=== PATIENT | female | born 1950 | race Caucasian/White ===

== ENCOUNTER 2016-12-28 13:00 | Inpatient (IN) | payer MEDICAID ==
[2016-12-28 14:22] LABS: HEMATOCRIT 38.6 % (36.0-47.0); HEMOGLOBIN 12.8 g/dL (12.0-15.5); HGB HCT DIFFERENCE -0.2; MEAN CORPUSCULAR HEMOGLOBIN 30.9 pg (27.0-33.4); MEAN CORPUSCULAR HGB CONC 33.3 g/dL (32.0-36.0); MEAN CORPUSCULAR VOLUME 93 fl (80-97); RED BLOOD COUNT 4.16 10^6/uL (3.72-5.28); RED CELL DISTRIBUTION WIDTH 13.5 % (11.5-14.0)
[2016-12-28 14:37] LABS: ALANINE AMINOTRANSFERASE 23 U/L (9-52); ALBUMIN 3.9 g/dL (3.5-5.0); ALKALINE PHOSPHATASE 58 U/L (38-126); ANION GAP 12 (5-19); ASPARTATE AMINO TRANSFERASE 17 U/L (14-36); BILIRUBIN,DIRECT 0.1 mg/dL (0.0-0.4); BILIRUBIN,TOTAL 1.3 mg/dL (0.2-1.3); BLOOD UREA NITROGEN 24 mg/dL (7-20); CALCIUM 9.6 mg/dL (8.4-10.2); CARBON DIOXIDE 30 mmol/L (22-30); CHLORIDE 100 mmol/L (98-107); CREATININE RESULT 0.65 mg/dL (0.52-1.25); GLUCOSE 125 mg/dL (75-110); POTASSIUM 4.5 mmol/L (3.6-5.0); SODIUM 141.7 mmol/L (137-145)
[2016-12-28] MEDS ORDERED: ENOXAPARIN SODIUM INJ 40 MG/0.4 ML DISP.SYRIN SUBCUT ONE (17:00)
[2016-12-28] MEDS: LEVOFLOXACIN 750 MG/D5W RTU 750 MG/150 ML RTUPB IV SCH (17:43)
[2016-12-28] MEDS ORDERED: INFLUENZA ADLT QUAD (36MOS+) 2016-17 VAC 0.5 ML SYR IM PRN (18:16)
[2016-12-28] MEDS ORDERED: ZOLPIDEM TARTRATE 5 MG PO PRN (19:22)
[2016-12-28] MEDS ORDERED: (PENDING PHARMACY ID) (Oxycodone Hcl/Acetaminophen [Oxycodone-Acetaminophen 10-325] 1 EACH PO PRN (19:22)
[2016-12-28] MEDS ORDERED: CHLORPHENIRAMINE MALEATE 4 MG TABLET PO PRN (19:22)
[2016-12-28] MEDS ORDERED: MECLIZINE HCL 25 MG TABLET PO PRN (19:22)
[2016-12-28] MEDS ORDERED: FUROSEMIDE 80 MG TABLET PO PRN (19:22)
--- NOTE | 2016-12-28 20:33 | PDOC H&P ---
History of Present Illness Admission Date/PCP: 12/28/16 13:37 DIEGO LUZ History of Present Illness: FATOUMATA KRUEGER is a 66 year old female, she came to the office this morning with family because she was not getting any better despite 5 days of p.o. antibiotic with azithromycin. She called the office last week to indicate to the office that she was not feeling well she was coughing and the cough was productive of sputum and that she needed antibiotic, patient is known to have pneumonia in the past it was assumed that she probably have community-acquired pneumonia and she was prescribed p.o. azithromycin but despite couple of many days of p.o. antibiotic she continued to feel unwell with vomiting not able to keep any food down and she came to the office today for evaluation. She was seen and evaluated in the office she was obviously acutely ill looking on auscultation of the chest there was scattered rhonchi because of concern for pneumonia and the fact that she has failed outpatient therapy despite treatment with p.o. antibiotic for the last 5 days she was admitted directly from the office to the hospital for evaluation and management of her symptoms. CT scan of the chest was done and it showed patchy airspace disease in the posterior right upper lobe, superior right and left lower lobe this suggests multilobar pneumonia. There is also associated leukocytosis with white cell count was increased. The initial intent was to bring her in for observation but after evaluation suggests that she has multilobar pneumonia this was transitioned to full admission, inpatient care Past Medical History Cardiac Medical History: Reports: Coronary Artery Disease, Hyperlipidema, Hypertension Pulmonary Medical History: Reports: Bronchitis, Pneumonia Endocrine Medical History: Reports: Diabetes Mellitus Type 2 - Diet controlled GI Medical History: Reports: Gastroesophageal Reflux Disease Musculoskeltal Medical History: Reports: Arthritis Psychiatric Medical History: Reports: Depression Past Surgical History Past Surgical History: Reports: Cardiac Catheterization - stent X2, Cholecystectomy, Hysterectomy, Orthopedic Surgery - carpal tunnel bilateral hands, spur on heel Social History Smoking Status: Former Smoker Frequency of Alcohol Use: None Hx Recreational Drug Use: No Drugs: None Hx Prescription Drug Abuse: No - Advance Directive Resuscitation Status: Full Code Family History Family History: Reviewed & Not Pertinent Parental Family History Reviewed: Yes Children Family History Reviewed: Yes Sibling(s) Family History Reviewed.: Yes Medication/Allergy Home Medications: Aspirin [Ecotrin 81 mg EC Tablet] 81 mg PO DAILY 08/05/11 Carvedilol [Coreg 25 mg Tablet] 25 mg PO BID 08/05/11 Lorazepam [Ativan 1 mg Tablet] 1 mg PO BID PRN 08/05/11 Omeprazole [Prilosec 40 mg Capsule] 40 mg PO QHS 08/05/11 Zolpidem Tartrate [Ambien 10 mg Tablet] 5 mg PO HSP PRN 08/05/11 Fexofenadine HCl [Sabrina] 180 mg PO QHS 05/08/14 Furosemide [Lasix 80 mg Tablet] 80 mg PO DAILY PRN 05/08/14 Oxycodone HCl/Acetaminophen [Oxycodone-Acetaminophen 10-325] 1 each PO Q6 PRN Chlorpheniramine Maleate [Aller-Chlor 4 mg Tablet] 1 tab PO Q6HP PRN 12/28/16 Lisinopril [Prinivil 2.5 mg Tablet] 2.5 mg PO DAILY 12/28/16 Meclizine HCl 25 mg PO DAILY PRN 12/28/16 Pramipexole Di-HCl [Pramipexole Dihydrochloride] 0.125 mg PO QHS 12/28/16 Pravastatin Sodium 40 mg PO DAILY 12/28/16 Allergies/Adverse Reactions: erythromycin base [Erythromycin Base] Allergy (Severe, Verified 11/02/13 12:32) stops breathing meperidine HCl [From Demerol] Allergy (Severe, Verified 11/02/13 12:32) VOMITING Review of Systems Constitutional: PRESENT: chills, weakness Respiratory: PRESENT: cough, sputum Gastrointestinal: PRESENT: nausea, vomiting Genitourinary: ABSENT: dysuria, hematuria Musculoskeletal: ABSENT: joint swelling Integumentary: ABSENT: rash, wounds Neurological: ABSENT: abnormal gait, abnormal speech, confusion, dizziness, focal weakness, syncope Psychiatric: ABSENT: anxiety, depression, homidical ideation, suicidal ideation Endocrine: ABSENT: cold intolerance, heat intolerance, menstrual abnormalities, polydipsia, polyuria Hematologic/Lymphatic: ABSENT: easy bleeding, easy bruising, lymphadenopathy Physical Exam Vital Signs: Temp Pulse Resp BP Pulse Ox 98.3 F 82 18 120/76 92 12/28/16 15:28 12/28/16 15:28 12/28/16 15:28 12/28/16 15:28 12/28/16 15:28 Intake & Output 12/27/16 12/28/16 12/29/16 06:59 06:59 06:59 Intake Total 240 Balance 240 Weight 102.2 kg General appearance: PRESENT: mild distress Head exam: PRESENT: atraumatic, normocephalic Eye exam: PRESENT: conjunctiva pink, EOMI, PERRLA Ear exam: PRESENT: normal external ear exam Mouth exam: PRESENT: moist, tongue midline Neck exam: PRESENT: full ROM Respiratory exam: PRESENT: crackles, rhonchi Cardiovascular exam: PRESENT: RRR, +S1, +S2 Vascular exam: PRESENT: normal capillary refill GI/Abdominal exam: PRESENT: normal bowel sounds, soft Rectal exam: PRESENT: deferred Neurological exam: PRESENT: alert, awake, oriented to person, oriented to place , oriented to time, oriented to situation, CN II-XII grossly intact Psychiatric exam: PRESENT: appropriate affect, normal mood Skin exam: PRESENT: dry, intact, warm Results Laboratory Results: 12/28/16 14:08 12/28/16 14:08 12/28/16 12/28/16 14:08 14:08 WBC 14.0 H RBC 4.16 Hgb 12.8 Hct 38.6 MCV 93 MCH 30.9 MCHC 33.3 RDW 13.5 Plt Count 222 Sodium 141.7 Potassium 4.5 Chloride 100 Carbon Dioxide 30 Anion Gap 12 BUN 24 H Creatinine 0.65 Est GFR ( Amer) > 60 Est GFR (Non-Af Amer) > 60 Glucose 125 H Calcium 9.6 Total Bilirubin 1.3 AST 17 ALT 23 Alkaline Phosphatase 58 Total Protein 7.0 Albumin 3.9 Impressions: Chest CT 12/28/16 00:00 IMPRESSION: STABLE CHRONIC CHANGES. PATCHY AIRSPACE DISEASE IN THE RIGHT UPPER LOBE AND RIGHT AND LEFT LOWER LOBE SUSPICIOUS FOR PNEUMONIA. Assessment & Plan - Diagnosis (1) Pneumonia Qualifiers: Pneumonia type: due to unspecified organism Laterality: bilateral Lung location: lower lobe of lung Qualified Code(s): J18.9 - Pneumonia, unspecified organism Is this a current diagnosis for this admission?: YesPlan: Patient was admitted for management of community acquired pneumonia, CT scan showed multilobar pneumonia involving the right upper lobe right and left lower lobe, she failed outpatient treatment with azithromycin, she be treated with IV antibiotic, Levaquin and cefepime to cover potential pathogens from the community. (2) Hypertension Qualifiers: Hypertension type: essential hypertension Qualified Code(s): I10 - Essential (primary) hypertension Is this a current diagnosis for this admission?: YesPlan: She will continue medication from home
[2016-12-28] MEDS: CARVEDILOL 12.5 MG TABLET PO SCH (21:49)
[2016-12-28] MEDS: CEFEPIME 1 GM/D5W RTU 1 GM/50 ML RTUPB IV SCH (21:50)
[2016-12-28] MEDS: ZOLPIDEM TARTRATE 5 MG TABLET PO PRN (21:51)
[2016-12-28] MEDS: OXYCODONE-ACETAMINOPHEN 5-325 MG TABLET PO PRN (21:51)
[2016-12-28] MEDS: LORAZEPAM 1 MG TABLET PO PRN (21:52)
[2016-12-28] MEDS: PRAMIPEXOLE DI-HCL 0.25 MG TABLET PO SCH (21:52)
[2016-12-28] MEDS: LORATADINE 10 MG TABLET PO SCH (21:53)
[2016-12-28] MEDS ORDERED: (PENDING PHARMACY ID) (Omeprazole [Prilosec 40 Mg Capsule] 40 MG) PO SCH (22:00)
[2016-12-28] MEDS ORDERED: (PENDING PHARMACY ID) (Pramipexole Di-Hcl [Pramipexole Dihydrochloride] 0.125 MG) PO SCH (22:00)
[2016-12-28] MEDS: LANSOPRAZOLE 30 MG TAB.RAP.DR PO SCH (22:38)
[2016-12-29] MEDS: ENOXAPARIN SODIUM INJ 40 MG/0.4 ML DISP.SYRIN SUBCUT SCH (07:48)
[2016-12-29] MEDS: OXYCODONE-ACETAMINOPHEN 5-325 MG TABLET PO PRN ×3 (08:04→23:07)
[2016-12-29] MEDS: ASPIRIN 81 MG TABLET, ENT COATED PO SCH (09:16)
[2016-12-29] MEDS: ATORVASTATIN CALCIUM 10 MG TABLET PO SCH (09:16)
[2016-12-29] MEDS: CEFEPIME 1 GM/D5W RTU 1 GM/50 ML RTUPB IV SCH ×2 (09:17→22:08)
[2016-12-29] MEDS: CARVEDILOL 12.5 MG TABLET PO SCH ×2 (09:17→22:06)
[2016-12-29] MEDS: OXYCODONE HCL IR 5 MG TABLET PO PRN ×3 (09:27→23:06)
[2016-12-29] MEDS ORDERED: (PENDING PHARMACY ID) (Lisinopril [Prinivil 2.5 Mg Tablet] 2.5 MG) PO SCH (10:00)
[2016-12-29] MEDS ORDERED: LISINOPRIL 5 MG TABLET PO SCH (10:00)
[2016-12-29] MEDS ORDERED: (PENDING PHARMACY ID) (Pravastatin Sodium [Pravastatin Sodium] 40 MG) PO SCH (10:00)
[2016-12-29] MEDS: LORAZEPAM 1 MG TABLET PO PRN ×2 (14:38→22:06)
[2016-12-29] MEDS: LEVOFLOXACIN 750 MG/D5W RTU 750 MG/150 ML RTUPB IV SCH (17:46)
--- NOTE | 2016-12-29 18:11 | PDOC PROGRESS REPORT ---
Subjective Progress Note for:: 12/29/16 Subjective:: She was admitted yesterday because of severe pneumonia, multilobar Pneumonia on IV antibiotic she is responding to treatment Physical Exam Vital Signs: Temp Pulse Resp BP Pulse Ox 97.4 F 66 17 134/67 H 93 12/29/16 11:14 12/29/16 15:27 12/29/16 15:27 12/29/16 15:27 12/29/16 15:27 Intake & Output 12/28/16 12/29/16 12/30/16 06:59 06:59 06:59 Intake Total 515 547 Output Total 200 Balance 315 547 Weight 90 kg General appearance: PRESENT: no acute distress Eye exam: PRESENT: PERRLA Respiratory exam: PRESENT: crackles Cardiovascular exam: PRESENT: +S1, +S2 GI/Abdominal exam: PRESENT: soft Rectal exam: PRESENT: deferred Neurological exam: PRESENT: alert, CN II-XII grossly intact Results Laboratory Results: 12/28/16 14:08 12/28/16 14:08 Impressions: Chest CT 12/28/16 00:00 IMPRESSION: STABLE CHRONIC CHANGES. PATCHY AIRSPACE DISEASE IN THE RIGHT UPPER LOBE AND RIGHT AND LEFT LOWER LOBE SUSPICIOUS FOR PNEUMONIA. Assessment & Plan - Diagnosis (1) Pneumonia Qualifiers: Pneumonia type: due to unspecified organism Laterality: bilateral Lung location: lower lobe of lung Qualified Code(s): J18.9 - Pneumonia, unspecified organism Is this a current diagnosis for this admission?: YesPlan: Continue IV antibiotic (2) Hypertension Qualifiers: Hypertension type: essential hypertension Qualified Code(s): I10 - Essential (primary) hypertension Is this a current diagnosis for this admission?: Yes
[2016-12-29] MEDS: ZOLPIDEM TARTRATE 5 MG TABLET PO PRN (22:06)
[2016-12-29] MEDS: PRAMIPEXOLE DI-HCL 0.25 MG TABLET PO SCH (22:06)
[2016-12-29] MEDS: LANSOPRAZOLE 30 MG TAB.RAP.DR PO SCH (22:06)
[2016-12-29] MEDS: LORATADINE 10 MG TABLET PO SCH (22:06)
[2016-12-30] MEDS: ENOXAPARIN SODIUM INJ 40 MG/0.4 ML DISP.SYRIN SUBCUT SCH (07:39)
[2016-12-30] MEDS: OXYCODONE HCL IR 5 MG TABLET PO PRN ×3 (07:45→22:05)
[2016-12-30] MEDS: OXYCODONE-ACETAMINOPHEN 5-325 MG TABLET PO PRN ×3 (07:46→22:05)
[2016-12-30] MEDS: CEFEPIME 1 GM/D5W RTU 1 GM/50 ML RTUPB IV SCH ×2 (09:07→21:45)
[2016-12-30] MEDS: CARVEDILOL 12.5 MG TABLET PO SCH ×2 (09:08→21:46)
[2016-12-30] MEDS: LOSARTAN POTASSIUM 50 MG TABLET PO SCH (09:08)
[2016-12-30] MEDS: ATORVASTATIN CALCIUM 10 MG TABLET PO SCH (09:09)
[2016-12-30] MEDS: ASPIRIN 81 MG TABLET, ENT COATED PO SCH (09:09)
[2016-12-30] MEDS: HYDROCHLOROTHIAZIDE 12.5 MG CAPSULE PO SCH (09:09)
[2016-12-30] MEDS: LORAZEPAM 1 MG TABLET PO PRN ×2 (15:11→22:05)
[2016-12-30] MEDS ORDERED: LEVOFLOXACIN 750 MG TABLET PO SCH (18:00)
--- NOTE | 2016-12-30 20:50 | PDOC PROGRESS REPORT ---
Subjective Progress Note for:: 12/30/16 Subjective:: She was seen by the bedside she is improving, she be discharged home tomorrow Physical Exam Vital Signs: Temp Pulse Resp BP Pulse Ox 98.9 F 67 20 121/64 99 12/30/16 15:00 12/30/16 15:00 12/30/16 15:00 12/30/16 15:00 12/30/16 15:00 Intake & Output 12/29/16 12/30/16 12/31/16 06:59 06:59 06:59 Intake Total 515 1267 640 Output Total 200 Balance 315 1267 640 Weight 90 kg General appearance: PRESENT: no acute distress, well-developed, well-nourished Head exam: PRESENT: atraumatic, normocephalic Eye exam: PRESENT: conjunctiva pink, EOMI, PERRLA. ABSENT: scleral icterus Ear exam: PRESENT: normal external ear exam Mouth exam: PRESENT: moist, tongue midline Respiratory exam: PRESENT: clear to auscultation nino Cardiovascular exam: PRESENT: RRR, +S1, +S2 Vascular exam: PRESENT: normal capillary refill GI/Abdominal exam: PRESENT: normal bowel sounds, soft Rectal exam: PRESENT: deferred Neurological exam: PRESENT: alert, awake, oriented to person, oriented to place , oriented to time, oriented to situation, CN II-XII grossly intact. ABSENT: motor sensory deficit Psychiatric exam: PRESENT: appropriate affect, normal mood Skin exam: PRESENT: dry, intact, warm Results Laboratory Results: 12/28/16 14:08 12/28/16 14:08 Impressions: Chest CT 12/28/16 00:00 IMPRESSION: STABLE CHRONIC CHANGES. PATCHY AIRSPACE DISEASE IN THE RIGHT UPPER LOBE AND RIGHT AND LEFT LOWER LOBE SUSPICIOUS FOR PNEUMONIA. Assessment & Plan - Diagnosis (1) Pneumonia Qualifiers: Pneumonia type: due to unspecified organism Laterality: bilateral Lung location: lower lobe of lung Qualified Code(s): J18.9 - Pneumonia, unspecified organism Is this a current diagnosis for this admission?: YesPlan: Continue IV antibiotic (2) Hypertension Qualifiers: Hypertension type: essential hypertension Qualified Code(s): I10 - Essential (primary) hypertension Is this a current diagnosis for this admission?: YesPlan: She will continue medication from home
--- NOTE | 2016-12-30 20:54 | PDOC DISCHARGE SUMMARY ---
General - Admit/Disc Date/PCP Admission Date/Primary Care Provider: 12/28/16 20:19 DIEGO LUZ Discharge Date: 12/31/16 - Discharge Diagnosis (1) Pneumonia Is this a current diagnosis for this admission?: Yes (2) Hypertension Is this a current diagnosis for this admission?: Yes - Additional Information Resuscitation Status: Full Code Discharge Activity: Activity As Tolerated Home Medications: Aspirin [Ecotrin 81 mg EC Tablet] 81 mg PO DAILY 08/05/11 Carvedilol [Coreg 25 mg Tablet] 25 mg PO BID 08/05/11 Lorazepam [Ativan 1 mg Tablet] 1 mg PO BID PRN 08/05/11 Omeprazole [Prilosec 40 mg Capsule] 40 mg PO QHS 08/05/11 Zolpidem Tartrate [Ambien 10 mg Tablet] 5 mg PO HSP PRN 08/05/11 Fexofenadine HCl [Sabrina] 180 mg PO QHS 05/08/14 Furosemide [Lasix 80 mg Tablet] 80 mg PO DAILY PRN 05/08/14 Oxycodone HCl/Acetaminophen [Oxycodone-Acetaminophen 10-325] 1 each PO Q6 PRN Chlorpheniramine Maleate [Aller-Chlor 4 mg Tablet] 1 tab PO Q6HP PRN 12/28/16 Meclizine HCl 25 mg PO DAILY PRN 12/28/16 Pramipexole Di-HCl [Pramipexole Dihydrochloride] 0.125 mg PO QHS 12/28/16 Pravastatin Sodium 40 mg PO DAILY 12/28/16 Losartan/Hydrochlorothiazide [Hyzaar 100-12.5 Tablet] 1 tab PO DAILY 12/29/16 Levofloxacin [Levaquin 750 mg Tablet] 750 mg PO QPM #10 tablet 12/30/16 History of Present Illness History of Present Illness: FATOUMATA KRUEGER is a 66 year old female, she came to the office this morning with family because she was not getting any better despite 5 days of p.o. antibiotic with azithromycin. She called the office last week to indicate to the office that she was not feeling well she was coughing and the cough was productive of sputum and that she needed antibiotic, patient is known to have pneumonia in the past it was assumed that she probably have community-acquired pneumonia and she was prescribed p.o. azithromycin but despite couple of many days of p.o. antibiotic she continued to feel unwell with vomiting not able to keep any food down and she came to the office today for evaluation. She was seen and evaluated in the office she was obviously acutely ill looking on auscultation of the chest there was scattered rhonchi because of concern for pneumonia and the fact that she has failed outpatient therapy despite treatment with p.o. antibiotic for the last 5 days she was admitted directly from the office to the hospital for evaluation and management of her symptoms. CT scan of the chest was done and it showed patchy airspace disease in the posterior right upper lobe, superior right and left lower lobe this suggests multilobar pneumonia. There is also associated leukocytosis with white cell count was increased. The initial intent was to bring her in for observation but after evaluation suggests that she has multilobar pneumonia this was transitioned to full admission, inpatient care Hospital Course Hospital Course: She was admitted for pneumonia, she was treated with IV antibiotic, Levaquin and cefepime and she responded very well to treatment, she has multilobar pneumonia involving the left and right lower lobe on the right upper lobe Physical Exam Vital Signs: Temp Pulse Resp BP Pulse Ox 98.9 F 67 20 121/64 99 12/30/16 15:00 12/30/16 15:00 12/30/16 15:00 12/30/16 15:00 12/30/16 15:00 Intake & Output 12/29/16 12/30/16 12/31/16 06:59 06:59 06:59 Intake Total 515 1267 640 Output Total 200 Balance 315 1267 640 Weight 90 kg General appearance: PRESENT: no acute distress, well-developed, well-nourished Head exam: PRESENT: atraumatic, normocephalic Eye exam: PRESENT: conjunctiva pink, EOMI, PERRLA. ABSENT: scleral icterus Ear exam: PRESENT: normal external ear exam Mouth exam: PRESENT: moist, tongue midline Neck exam: PRESENT: full ROM Respiratory exam: PRESENT: clear to auscultation nino Cardiovascular exam: PRESENT: RRR, +S1, +S2 Vascular exam: PRESENT: normal capillary refill GI/Abdominal exam: PRESENT: normal bowel sounds, soft Rectal exam: PRESENT: deferred Neurological exam: PRESENT: alert, awake, oriented to person, oriented to place , oriented to time, oriented to situation, CN II-XII grossly intact Psychiatric exam: PRESENT: appropriate affect, normal mood Skin exam: PRESENT: dry, intact, warm Results Laboratory Results: 12/28/16 14:08 12/28/16 14:08 Impressions: Chest CT 12/28/16 00:00 IMPRESSION: STABLE CHRONIC CHANGES. PATCHY AIRSPACE DISEASE IN THE RIGHT UPPER LOBE AND RIGHT AND LEFT LOWER LOBE SUSPICIOUS FOR PNEUMONIA.
[2016-12-30] MEDS: PRAMIPEXOLE DI-HCL 0.25 MG TABLET PO SCH (21:46)
[2016-12-30] MEDS: LANSOPRAZOLE 30 MG TAB.RAP.DR PO SCH (21:46)
[2016-12-30] MEDS: LORATADINE 10 MG TABLET PO SCH (21:46)
[2016-12-30] MEDS: ZOLPIDEM TARTRATE 5 MG TABLET PO PRN (22:05)
[2016-12-31] MEDS: OXYCODONE-ACETAMINOPHEN 5-325 MG TABLET PO PRN (06:35)
[2016-12-31] MEDS: OXYCODONE HCL IR 5 MG TABLET PO PRN (06:35)
[2016-12-31] MEDS: ENOXAPARIN SODIUM INJ 40 MG/0.4 ML DISP.SYRIN SUBCUT SCH (07:57)
[2016-12-31 08:25] VITALS: BP 150/61
[2016-12-31] MEDS: HYDROCHLOROTHIAZIDE 12.5 MG CAPSULE PO SCH (09:24)
[2016-12-31] MEDS: ASPIRIN 81 MG TABLET, ENT COATED PO SCH (09:24)
[2016-12-31] MEDS: CARVEDILOL 12.5 MG TABLET PO SCH (09:24)
[2016-12-31] MEDS: ATORVASTATIN CALCIUM 10 MG TABLET PO SCH (09:24)
[2016-12-31] MEDS: LOSARTAN POTASSIUM 50 MG TABLET PO SCH (09:24)
[2016-12-31] MEDS: CEFEPIME 1 GM/D5W RTU 1 GM/50 ML RTUPB IV SCH (09:25)
== END 2016-12-31 09:55 | disposition home or self-care (01) | DRG 195 ==
LOC: UNDOADMOB 13:00 → 5 13:00 → OBSVTOIN 13:37 → 5 13:37 → INTOOBSV 13:37 → OBSVTOIN 20:19
PROVIDERS: ADMIT Internal Medicine; ATTEND Internal Medicine
DX: J18.1 Lobar pneumonia, unspecified organism (principal); I10 Essential (primary) hypertension; I25.10 Atherosclerotic heart disease of native coronary artery without angina pectoris; E78.5 Hyperlipidemia, unspecified; E11.9 Type 2 diabetes mellitus without complications; K21.9 Gastro-esophageal reflux disease without esophagitis; F32.9 Major depressive disorder, single episode, unspecified; Z95.5 Presence of coronary angioplasty implant and graft; Z87.891 Personal history of nicotine dependence; Z79.82 Long term (current) use of aspirin; Z79.899 Other long term (current) drug therapy
CPT/HCPCS: 36415; 71250; 80048; 80076; 85027; 87040; 87070; 87077; 87186; 87205; G0378; G0379; J0692; J1650; J1956; J3490

== ENCOUNTER → 2017-03-24 | Outpatient (CLI) | payer MEDICARE, MEDICAID ==
--- NOTE | 2017-03-24 15:57 | RADIOLOGY REPORT (SQ) ---
EXAM DESCRIPTION: KNEE RIGHT 2 VIEWS COMPLETED DATE/TIME: 03/24/2017 3:02 pm REASON FOR STUDY: PAIN IN RIGHT KNEE M25.561 PAIN IN RIGHT KNEE COMPARISON: Right knee films 12/10/2015, 09/08/2007 NUMBER OF VIEWS: Four views. TECHNIQUE: AP, lateral, and both oblique radiographic images acquired of the right knee. LIMITATIONS: None. FINDINGS: MINERALIZATION: Osteopenic BONES: No acute fracture. JOINT: High-grade patellofemoral and lateral compartment joint space narrowing with bony spurring. M ild medial compartment joint space narrowing and bony spurring. No significant joint effusion SOFT TISSUES: Popliteal artery atherosclerotic calcification OTHER: No other significant finding. IMPRESSION: Tricompartment osteoarthritis. No acute fracture TECHNICAL DOCUMENTATION: JOB ID: [id number] [employer]- All Rights Reserved
== END ==
LOC: OD 14:48
PROVIDERS: ATTEND Internal Medicine
DX: M25.561 Pain in right knee (principal)

== ENCOUNTER 2017-07-02 14:01 | Emergency (ER) | payer MEDICARE, MEDICAID ==
[2017-07-02 14:16] VITALS: BP 156/77
--- NOTE | 2017-07-02 14:39 | ER Document Report ---
ED Cardiac - General Chief Complaint: Chest Pain Stated Complaint: CHEST WALL PAIN Time Seen by Provider: 07/02/17 14:21 Mode of Arrival: Ambulatory Information source: Patient TRAVEL OUTSIDE OF THE [place] IN LAST 30 DAYS: No - HPI Patient complains to provider of: Chest pain Chest pain location: Other - Left anterior chest wall Quality of pain: Moderate, Achy Severity now: Moderate Severity at worst: Moderate Chest pain precipitating factors: At Rest Associated symptoms: None Exacerbated by: Torso movement Relieved by: Nothing Similar symptoms previously: Yes Recently seen / treated by doctor: Yes Notes: Patient is a 67-year-old female presenting to the emergency room complaining of 3 week history of left anterior chest wall pain, she states it hurts when she moves her arm or her chest wall, or if you palpate the area, she denies any injury or trauma, no heavy lifting, no shortness of breath, no cough, she reports she has been seen by both her primary care provider and her truck farmer for these symptoms recently, stating that her primary care provider told her it was stress related, and her truck farmer Dr. Giron recently performed a stress test, and echocardiogram and place patient on a 72 hour monitor and reportedly found no abnormalities according to patient - Related Data Allergies/Adverse Reactions: erythromycin base [Erythromycin Base] Allergy (Severe, Verified 11/02/13 12:32) stops breathing meperidine HCl [From Demerol] Allergy (Severe, Verified 11/02/13 12:32) VOMITING Past Medical History - General Information source: Patient - Social History Smoking Status: Never Smoker Family History: Reviewed & Not Pertinent - Past Medical History Cardiac Medical History: Reports: Hx Coronary Artery Disease, Hx Hypercholesterolemia, Hx Hypertension Denies: Hx Congestive Heart Failure, Hx Heart Attack Pulmonary Medical History: Reports: Hx Bronchitis, Hx Pneumonia Denies: Hx Asthma, Hx COPD, Hx Tuberculosis Neurological Medical History: Denies: Hx Seizures Endocrine Medical History: Reports: Hx Diabetes Mellitus Type 2 - Diet controlled Renal/ Medical History: Reports: Hx Kidney Stones. Denies: Hx End Stage Renal Disease, Hx Peritoneal Dialysis GI Medical History: Reports: Hx Gastroesophageal Reflux Disease. Denies: Hx Cirrhosis, Hx Ulcer Musculoskeltal Medical History: Reports Hx Arthritis, Denies Hx Multiple Sclerosis Psychiatric Medical History: Reports: Hx Depression Denies: Hx Bipolar Disorder, Hx Schizophrenia Past Surgical History: Reports: Hx Abdominal Surgery - Gastric bypass, Hx Cardiac Catheterization - stent X2, Hx Cholecystectomy, Hx Hysterectomy, Hx Orthopedic Surgery - carpal tunnel bilateral hands, spur on heel - Immunizations Immunizations up to date: Yes Hx Diphtheria, Pertussis, Tetanus Vaccination: Yes Hx Pneumococcal Vaccination: 10/03/07 Review of Systems - Review of Systems Constitutional: No symptoms reported EENT: No symptoms reported Cardiovascular: Chest pain Respiratory: No symptoms reported Gastrointestinal: No symptoms reported Genitourinary: No symptoms reported Female Genitourinary: No symptoms reported Musculoskeletal: No symptoms reported Skin: No symptoms reported Hematologic/Lymphatic: No symptoms reported Neurological/Psychological: No symptoms reported -: Yes All other systems reviewed and negative Physical Exam - Vital signs Vitals: Temp Pulse Resp BP Pulse Ox 98.8 F 65 16 156/77 H 98 07/02/17 14:14 07/02/17 14:14 07/02/17 14:14 07/02/17 14:14 07/02/17 14:14 Interpretation: Normal - General General appearance: Appears well, Alert - HEENT Head: Normocephalic, Atraumatic Eyes: Normal Pupils: PERRL - Respiratory Respiratory status: No respiratory distress Chest status: Tender - Tender to palpate in left anterior chest wall musculature Breath sounds: Normal Chest palpation: Normal - Cardiovascular Rhythm: Regular Heart sounds: Normal auscultation Murmur: No - Abdominal Inspection: Normal Distension: No distension Bowel sounds: Normal Tenderness: Nontender Organomegaly: No organomegaly - Back Back: Normal, Nontender - Extremities General upper extremity: Normal inspection, Nontender, Normal color, Normal ROM , Normal temperature, Other - Several ecchymosis noted on upper extremities General lower extremity: Normal inspection, Nontender, Normal color, Normal ROM , Normal temperature, Normal weight bearing. No: Wong's sign - Neurological Neuro grossly intact: Yes Cognition: Normal Orientation: AAOx4 Ivis Coma Scale Eye Opening: Spontaneous [place] Coma Scale Verbal: Oriented [place] Coma Scale Motor: Obeys Commands [place] Coma Scale Total: 15 Speech: Normal Motor strength normal: LUE, RUE, LLE, RLE Sensory: Normal - Psychological Associated symptoms: Normal affect, Normal mood - Skin Skin Temperature: Warm Skin Moisture: Dry Skin Color: Normal Course - Re-evaluation Re-evalutation: 07/02/17 15:39 Lab and imaging findings were discussed with patient, x-ray findings are consistent with possible early pneumonia, symptoms have been going on for 3 weeks and are reproducible with palpation of the anterior chest wall or with certain movements, most consistent with musculoskeletal pain, however with the x -ray findings patient will be placed on a short course of antibiotics, patient will be discharged with instructions for follow-up and advised to return if any additional concerns, patient already takes oxycodone at home for pain and was advised to continue this pain regimen, along with gentle massage, gentle stretching, patient acknowledges understanding and agreement with this plan 07/02/17 15:41 - Vital Signs Vital signs: Temp Pulse Resp BP Pulse Ox 98.8 F 65 16 156/77 H 98 07/02/17 14:14 07/02/17 14:14 07/02/17 14:14 07/02/17 14:14 07/02/17 14:14 - Laboratory Result Diagrams: 07/02/17 14:45 07/02/17 14:45 Laboratory results interpreted by me: 07/02/17 07/02/17 14:45 14:45 Hgb 11.8 L Hct 34.4 L BUN 22 H - Diagnostic Test Radiology reviewed: Image reviewed, Reports reviewed - EKG Interpretation by Sd EKG shows normal: Sinus rhythm Rate: Normal Rhythm: NSR When compared to previous EKG there are: No significant change Discharge - Discharge Clinical Impression: Chest wall pain Pneumonia Qualifiers: Pneumonia type: due to unspecified organism Laterality: right Lung location: lower lobe of lung Qualified Code(s): J18.1 - Lobar pneumonia, unspecified organism Condition: Stable Disposition: HOME, SELF-CARE Instructions: Chest Wall Pain ([facility]), Pneumonia ([facility]) Additional Instructions: Follow up with your primary care provider in one to 2 days. Return to the emergency room immediately if symptoms worsen or any additional concerns. Prescriptions: Levofloxacin [Levaquin 750 mg Tablet] 750 mg PO DAILY #5 tablet
[2017-07-02 15:05] LABS: ABSOLUTE BASOPHILS # (AUTO) 0.1 10^3/uL (0.0-0.2); ABSOLUTE EOSINOPHILS # (AUTO) 0.1 10^3/uL (0.0-0.6); ABSOLUTE LYMPHOCYTES (AUTO) 1.9 10^3/uL (0.5-4.7); ABSOLUTE MONOCYTES (AUTO) 0.5 10^3/uL (0.1-1.4); EOSINOPHILS % (AUTO) 1.2 % (0-6); HEMATOCRIT 34.4 % (36.0-47.0); HEMOGLOBIN 11.8 g/dL (12.0-15.5); LYMPHOCYTES % (AUTO) 29.4 % (13-45); MEAN CORPUSCULAR HEMOGLOBIN 31.6 pg (27.0-33.4); MEAN CORPUSCULAR HGB CONC 34.3 g/dL (32.0-36.0); MEAN CORPUSCULAR VOLUME 92 fl (80-97); MONOCYTES % (AUTO) 7.5 % (3-13); RED BLOOD COUNT 3.74 10^6/uL (3.72-5.28); SEGMENTED NEUTROPHILS % (AUTO) 60.9 % (42-78); WHITE BLOOD COUNT 6.6 10^3/uL (4.0-10.5)
[2017-07-02 15:27] LABS: ALANINE AMINOTRANSFERASE 21 U/L (9-52); ALBUMIN 3.5 g/dL (3.5-5.0); ALKALINE PHOSPHATASE 61 U/L (38-126); ANION GAP 8 (5-19); ASPARTATE AMINO TRANSFERASE 15 U/L (14-36); BILIRUBIN,DIRECT 0.4 mg/dL (0.0-0.4); BILIRUBIN,TOTAL 0.9 mg/dL (0.2-1.3); BLOOD UREA NITROGEN 22 mg/dL (7-20); CALCIUM 9.4 mg/dL (8.4-10.2); CARBON DIOXIDE 29 mmol/L (22-30); CHLORIDE 106 mmol/L (98-107); CREATINE KINASE 56 U/L (30-135); GLUCOSE 102 mg/dL (75-110); POTASSIUM 4.6 mmol/L (3.6-5.0); SODIUM 143.1 mmol/L (137-145); TOTAL PROTEIN 6.6 g/dL (6.3-8.2)
--- NOTE | 2017-07-02 15:27 | RADIOLOGY REPORT (SQ) ---
EXAM DESCRIPTION: CHEST PA/LAT COMPLETED DATE/TIME: 07/02/2017 3:14 pm REASON FOR STUDY: cp COMPARISON: 05/31/2014 EXAM PARAMETERS: NUMBER OF VIEWS: two views TECHNIQUE: Digital Frontal and Lateral radiographic views of the chest acquired. RADIATION DOSE: NA LIMITATIONS: none FINDINGS: LUNGS AND PLEURA: Patchy increased parenchymal density in the right lower lobe. No effusi ons. Left lung is clear MEDIASTINUM AND HILAR STRUCTURES: No masses or contour abnormalities. HEART AND VASCULAR STRUCTURES: Heart normal size. No evidence for failure. BONES: No acute findings. HARDWARE: None in the chest. OTHER: No other significant finding. IMPRESSION: Atelectasis versus early pneumonia right lower lobe. TECHNICAL DOCUMENTATION: JOB ID: [id number] [employer]- All Rights Reserved
[2017-07-02 15:36] LABS: CREATINE KINASE MB 1.78 ng/mL (<4.55)
[2017-07-02 15:37] LABS: TROPONIN I < 0.012 ng/mL
--- NOTE | 2017-07-02 16:31 | EKG REPORT ---
SEVERITY:- ABNORMAL ECG - SINUS RHYTHM PROBABLE INFERIOR INFARCT, OLD : Confirmed by: Shan Espino 02-Jul-2017 16:30:11
== END 2017-07-02 15:50 | disposition home or self-care (01) ==
LOC: ER 14:01
DX: J18.1 Lobar pneumonia, unspecified organism (principal); R07.89 Other chest pain; M79.602 Pain in left arm
CPT/HCPCS: 36415; 71020; 80053; 82550; 82553; 84484; 85025; 93005; 93010; 99284

== ENCOUNTER → 2017-08-15 | Outpatient (CLI) | payer MEDICARE, MEDICAID ==
--- NOTE | 2017-08-15 17:19 | RADIOLOGY REPORT (SQ) ---
EXAM DESCRIPTION: FOOT LEFT COMPLETE COMPLETED DATE/TIME: 08/15/2017 4:50 pm REASON FOR STUDY: HALLUX VALGUS (ACQUIRED), LEFT FOOT M20.12 HALLUX VALGUS (ACQUIRED), LEFT FOOT COMPARISON: 02/28/2013 NUMBER OF VIEWS: Three views. TECHNIQUE: AP, lateral and oblique radiographic images acquired of the left foot. LIMITATIONS: None. FINDINGS: MINERALIZATION: Normal. BONES: No acute fracture or dislocation. No worrisome bone lesions. JOINTS: Marked hallux valgus. SOFT TISSUES: No soft tissue swelling. No foreign body. OTHER: Pes planus IMPRESSION: Hallux valgus with no acute abnormality. TECHNICAL DOCUMENTATION: JOB ID: [id number] [employer]- All Rights Reserved
== END ==
LOC: OD 15:39
PROVIDERS: ATTEND Podiatrist Foot & Ankle Surgery
DX: M20.12 Hallux valgus (acquired), left foot (principal)

== ENCOUNTER → 2017-11-16 | Outpatient (CLI) | payer MEDICARE, MEDICAID ==
--- NOTE | 2017-11-16 14:44 | WOMENS IMAGING REPORT ---
EXAM DESCRIPTION: 3D SCREENING MAMMO BILAT COMPLETED DATE/TIME: 11/16/2017 2:04 pm REASON FOR STUDY: ROUTINE SCREENING; Z12.31 Z12.31 ENCNTR SCREEN MAMMOGRAM FOR MALIGNANT NEOPLASM O F EVA COMPARISON: 2008, 2013 TECHNIQUE: Standard craniocaudal and mediolateral oblique views of each breast recorded using digita l acquisition and breast tomosynthesis. LIMITATIONS: None. FINDINGS: No masses, calcifications or architectural distortion. No areas of suspicion. Read with the assistance of CAD. .[facility] - R2 Cenova Version 1.3 .[facility] Imaging - R2 Cenova Version 1.3 .[facility] Imaging - R2 Cenova Version 2.[address] - R2 Cenova Version 2.4 .[facility] - R2 Economic Specialist Version 9.2 IMPRESSION: NORMAL MAMMOGRAM. BIRADS 1. BREAST DENSITY: a. The breasts are almost entirely fatty. BIRAD: 1 NEGATIVE RECOMMENDATION: ROUTINE SCREENING COMMENT: The patient has been notified of the results by letter per [place] requirements. Additional no tification policies are in place for contacting patient with suspicious or incomplete findings. Quality ID #[id number]: The [employer] recommends an annual screening mammogram for women aged 40 years or over. This facility utilizes a reminder system to ensure that all patients receive reminder letters, and/or direct phone calls for appointments. This includes reminders for routine scr eening mammograms, diagnostic mammograms, or other Breast Imaging Interventions when appropriate. Th is patient will be placed in the appropriate reminder system. The [employer] (ACR) has developed recommendations for screening MRI of the breast s in certain patient populations, to be used in conjunction with mammography. Breast MRI surveillanc e may be appropriate for women with more than 20% lifetime risk of developing breast cancer as deter mined by genetic testing, significant family history of the disease, or history of mantle radiation f or Hodgkins Disease. ACR Practice Guidelines 2008. DBT Technology DBT is a type of tomographic mammography. With conventional mammography, overlapping breast tissue ma y make lesions difficult to detect, even with good compression. DBT uses an x-ray tube that rotates a round the breast, taking images at different angles. These images are then combined to create thin sl ices of the breast that the radiologist can view as a 3D reconstruction. The [employer] unit can perform full-field digital mammograms (2D imaging); or DBT (3D imaging); or both, in a combination mode that quickly performs both the mammogram and the tomosynthesis scan while the breast is still compressed. PQRS 6045F: Fluoroscopic imaging is not utilized for breast tomosynthesis. TECHNICAL DOCUMENTATION: FINDING NUMBER: (1) ASSESSMENT: (1) JOB ID: [id number] [employer]- All Rights Reserved
== END ==
LOC: WI 13:26
PROVIDERS: ATTEND Internal Medicine
DX: Z12.31 Encounter for screening mammogram for malignant neoplasm of breast (principal)
CPT/HCPCS: 77063; 77067

== ENCOUNTER → 2017-11-18 | Outpatient (CLI) | payer MEDICARE, MEDICAID ==
--- NOTE | 2017-11-19 12:26 | XCELERA REPORT ---
[address] [address] Lower Extremity Venous Evaluation Name: FATOUMATA KRUEGER Age: 67 yrs Gender: Female : 1950 Patient Status: Outpatient Patient Location: [facility] Study Date: 11/18/2017 05:26 PM Procedure: Color flow and duplex imaging of the veins of the right lower extremity as well as the left Common Femoral vein. Reason For Study: SWELLING Ordering Physician: EARNEST COLLAZO Performed By: Lynne Rivas Right Sided Venous Evaluation Normal vessel filling wall to wall, compression and augmentation as well as Colour flow down to the infrageniculate veins. Left Sided Venous Evaluation The left common femoral vein is fully compressible. Spontaneous and phasic flow is present in the left common femoral vein. Interpretation Summary No duplex evidence of DVT or obstruction in the right lower extremity nor in the left Common Femoral vein. : EARNEST COLLAZO > Zia Jeter
== END ==
LOC: RAD 16:41
PROVIDERS: ATTEND Internal Medicine
DX: R22.43 Localized swelling, mass and lump, lower limb, bilateral (principal)
CPT/HCPCS: 93971

== ENCOUNTER 2017-12-25 19:12 | Inpatient (IN) | payer MEDICARE, MEDICAID ==
[2017-12-25 20:19] LABS: ABSOLUTE BASOPHILS # (AUTO) 0.1 10^3/uL (0.0-0.2); ABSOLUTE EOSINOPHILS # (AUTO) 0.1 10^3/uL (0.0-0.6); ABSOLUTE LYMPHOCYTES (AUTO) 2.2 10^3/uL (0.5-4.7); ABSOLUTE MONOCYTES (AUTO) 0.7 10^3/uL (0.1-1.4); ABSOLUTE NEUT (AUTO) 6.5 10^3/uL (1.7-8.2); BASOPHILS % (AUTO) 0.8 % (0-2); HEMATOCRIT 42.1 % (36.0-47.0); HEMOGLOBIN 13.8 g/dL (12.0-15.5); LYMPHOCYTES % (AUTO) 23.2 % (13-45); MEAN CORPUSCULAR HEMOGLOBIN 29.1 pg (27.0-33.4); MEAN CORPUSCULAR HGB CONC 32.7 g/dL (32.0-36.0); MEAN CORPUSCULAR VOLUME 89 fl (80-97); MONOCYTES % (AUTO) 6.9 % (3-13); PLATELET COUNT 312 10^3/uL (150-450); RED BLOOD COUNT 4.73 10^6/uL (3.72-5.28); RED CELL DISTRIBUTION WIDTH 15.3 % (11.5-14.0); SEGMENTED NEUTROPHILS % (AUTO) 68.1 % (42-78); TOTAL CELLS COUNTED % (AUTO) 100 %; WHITE BLOOD COUNT 9.5 10^3/uL (4.0-10.5)
[2017-12-25 20:36] LABS: ANION GAP 13 (5-19); BLOOD UREA NITROGEN 40 mg/dL (7-20); CALCIUM 10.1 mg/dL (8.4-10.2); CARBON DIOXIDE 29 mmol/L (22-30); CHLORIDE 103 mmol/L (98-107); GLUCOSE 105 mg/dL (75-110); POTASSIUM 4.4 mmol/L (3.6-5.0); SODIUM 144.7 mmol/L (137-145)
[2017-12-25] MEDS ORDERED: ASPIRIN 81 MG TABLET, CHEWABLE PO ONE (20:48)
[2017-12-25 21:10] LABS: APPEARANCE,URINE CLEAR; BILIRUBIN,URINE NEGATIVE (NEGATIVE); COLOR,URINE STRAW; GLUCOSE, URINE NEGATIVE (NEGATIVE); KETONES,URINE NEGATIVE (NEGATIVE); LEUKOCYTE ESTERASE,URINE NEGATIVE (NEGATIVE); NITRITE,URINE NEGATIVE (NEGATIVE); PROTEIN,URINE NEGATIVE (NEGATIVE); URINE SPECIFIC GRAVITY 1.011; UROBILINOGEN,URINE NEGATIVE mg/dL (<2.0)
[2017-12-25] MEDS ORDERED: CLOPIDOGREL BISULFATE 300 MG TABLET PO ONE (21:22)
--- NOTE | 2017-12-25 21:30 | ER Document Report ---
ED General - General Chief Complaint: S/S of Possible Stroke Stated Complaint: POSSIBLE STROKE Time Seen by Provider: 12/25/17 19:21 Notes: Patient is a 67-year-old female with past medical history of hypertension, hyperlipidemia, chronic pain 2 days of gait instability, "acting like a drunk". She saw her primary care physician 2 days ago had an MRI completed today and was subsequently contacted by her primary care doctor informed she has had a stroke. She has no prior history of CVA. She has not noted that anything seems to improve or worsen her symptoms. She notes they been unchanged since onset. She denies any head trauma. She denies any focal weakness, numbness, headache, neck pain, confusion, nausea or vomiting. No chest pain or shortness of breath. She does take a daily baby aspirin. TRAVEL OUTSIDE OF THE [place] IN LAST 30 DAYS: No - Related Data Allergies/Adverse Reactions: erythromycin base [Erythromycin Base] Allergy (Severe, Verified 12/25/17 19:18) stops breathing meperidine HCl [From Demerol] Allergy (Severe, Verified 12/25/17 19:18) VOMITING Past Medical History - General Information source: Patient - Social History Smoking Status: Former Smoker Chew tobacco use (# tins/day): No Frequency of alcohol use: None Drug Abuse: None Lives with: Family Family History: Reviewed & Not Pertinent Patient has suicidal ideation: No Patient has homicidal ideation: No - Past Medical History Cardiac Medical History: Reports: Hx Coronary Artery Disease, Hx Hypercholesterolemia, Hx Hypertension Denies: Hx Congestive Heart Failure, Hx Heart Attack Pulmonary Medical History: Reports: Hx Bronchitis, Hx Pneumonia Denies: Hx Asthma, Hx COPD, Hx Tuberculosis Neurological Medical History: Denies: Hx Seizures Endocrine Medical History: Reports: Hx Diabetes Mellitus Type 2 - Diet controlled Renal/ Medical History: Reports: Hx Kidney Stones. Denies: Hx End Stage Renal Disease, Hx Peritoneal Dialysis GI Medical History: Reports: Hx Gastroesophageal Reflux Disease. Denies: Hx Cirrhosis, Hx Ulcer Musculoskeltal Medical History: Reports Hx Arthritis, Denies Hx Multiple Sclerosis Psychiatric Medical History: Reports: Hx Depression Denies: Hx Bipolar Disorder, Hx Schizophrenia Past Surgical History: Reports: Hx Abdominal Surgery - Gastric bypass, Hx Cardiac Catheterization - stent X2, Hx Cholecystectomy, Hx Hysterectomy, Hx Orthopedic Surgery - carpal tunnel bilateral hands, spur on heel - Immunizations Immunizations up to date: Yes Hx Diphtheria, Pertussis, Tetanus Vaccination: Yes Hx Pneumococcal Vaccination: 10/03/07 Review of Systems - Review of Systems Notes: Constitutional: Negative for fever. HENT: Negative for sore throat. Eyes: Negative for visual changes. Cardiovascular: Negative for chest pain. Respiratory: Negative for shortness of breath. Gastrointestinal: Negative for abdominal pain, vomiting or diarrhea. Genitourinary: Negative for dysuria. Musculoskeletal: Negative for back pain. Skin: Negative for rash. Neurological: Positive for ataxia 10 point ROS negative except as marked above and in HPI. Physical Exam - Vital signs Vitals: Temp Pulse Resp BP Pulse Ox 97.8 F 78 14 150/89 H 100 12/25/17 19:16 12/25/17 19:16 12/25/17 19:16 12/25/17 19:16 12/25/17 19:16 Interpretation: Hypertensive Notes: PHYSICAL EXAMINATION: GENERAL: Well-appearing, well-nourished and in no acute distress. HEAD: Atraumatic, normocephalic. EYES: Pupils equal round and reactive to light, extraocular movements intact, sclera anicteric, conjunctiva are normal. ENT: nares patent, oropharynx clear without exudates. Moist mucous membranes. NECK: Normal range of motion, supple without lymphadenopathy LUNGS: Breath sounds clear to auscultation bilaterally and equal. No wheezes rales or rhonchi. HEART: Regular rate and rhythm without murmurs ABDOMEN: Soft, nontender, normoactive bowel sounds. No guarding, no rebound. No masses appreciated. EXTREMITIES: Normal range of motion, no pitting or edema. No cyanosis. NEUROLOGICAL: Face symmetric. Tongue protrudes midline. Extraocular motions intact. Pupils are 2 mm and equally reactive. Normal speech. 5 out of 5 strength in both the distal and proximal upper and lower extremities bilaterally. Sensation is grossly intact throughout. Mild dysmetria on the left with finger to nose testing. Normal in the right. Mild dysdiadochokinesia on the left versus the right. Pronator drift normal. PSYCH: Normal mood, normal affect. SKIN: Warm, Dry, normal turgor, no rashes or lesions noted. Course - Re-evaluation Re-evalutation: 12/25/17 21:27 Patient presents with ataxia, some mild dysmetria on the left although no focal weakness or numbness. An MRI done as an outpatient does show a vertebral basilar distribution stroke. She is otherwise very well in appearance, denies any additional complaints. Labs unremarkable. No indication for repeat head imaging. I discussed this case with Dr. Terrazas who is on-call for Dr. Saez and is accepted the patient for admission. The patient has received both Plavix and aspirin here in the emergency room. I had an extensive conversation with her about discontinuing zolpidem, Percocet, as well as lorazepam as these medications are not indicated for long-term use and she is also at risk for comp occasions from his medications due to her advanced age. She and her family the bedside in agreement with eventually discontinue these medications and I have instructed them that this will be discontinued during her time in the hospital. - Vital Signs Vital signs: Temp Pulse Resp BP Pulse Ox 98.1 F 77 18 122/58 L 100 12/26/17 00:40 12/26/17 02:00 12/26/17 00:40 12/26/17 00:40 12/26/17 00:40 - Laboratory Result Diagrams: 12/25/17 19:57 12/25/17 19:57 Laboratory results interpreted by me: 12/25/17 12/25/17 19:57 19:57 RDW 15.3 H BUN 40 H Est GFR (Non-Af Amer) 56 L - Diagnostic Test Radiology reviewed: Reports reviewed Discharge - Discharge Clinical Impression: Morbid obesity, Acute embolic stroke Hypertension Qualifiers: Hypertension type: essential hypertension Qualified Code(s): I10 - Essential ( primary) hypertension Condition: Fair Disposition: ADMITTED INPATIENT Admitting Provider: [facility] Admitted: [facility]
[2017-12-25] MEDS ORDERED: ATORVASTATIN CALCIUM 40 MG TABLET PO SCH (22:00)
[2017-12-25] MEDS: FAMOTIDINE 20 MG TABLET PO SCH (22:38)
[2017-12-26] MEDS ORDERED: OXYCODONE-ACETAMINOPHEN 5-325 MG TABLET PO ONE (00:15)
[2017-12-26] MEDS ORDERED: OXYCODONE HCL IR 5 MG TABLET PO ONE (00:15)
[2017-12-26 04:07] LABS: ABSOLUTE BASOPHILS # (AUTO) 0.1 10^3/uL (0.0-0.2); ABSOLUTE EOSINOPHILS # (AUTO) 0.1 10^3/uL (0.0-0.6); ABSOLUTE LYMPHOCYTES (AUTO) 2.4 10^3/uL (0.5-4.7); ABSOLUTE MONOCYTES (AUTO) 0.6 10^3/uL (0.1-1.4); ABSOLUTE NEUT (AUTO) 4.4 10^3/uL (1.7-8.2); BASOPHILS % (AUTO) 1.4 % (0-2); EOSINOPHILS % (AUTO) 1.1 % (0-6); HEMATOCRIT 37.1 % (36.0-47.0); HEMOGLOBIN 12.1 g/dL (12.0-15.5); LYMPHOCYTES % (AUTO) 31.8 % (13-45); MEAN CORPUSCULAR HEMOGLOBIN 28.8 pg (27.0-33.4); MEAN CORPUSCULAR HGB CONC 32.5 g/dL (32.0-36.0); MEAN CORPUSCULAR VOLUME 89 fl (80-97); MONOCYTES % (AUTO) 8.3 % (3-13); PLATELET COUNT 263 10^3/uL (150-450); RED BLOOD COUNT 4.18 10^6/uL (3.72-5.28); RED CELL DISTRIBUTION WIDTH 15.4 % (11.5-14.0); SEGMENTED NEUTROPHILS % (AUTO) 57.4 % (42-78); TOTAL CELLS COUNTED % (AUTO) 100 %; WHITE BLOOD COUNT 7.7 10^3/uL (4.0-10.5)
[2017-12-26 04:32] LABS: ANION GAP 9 (5-19); BLOOD UREA NITROGEN 41 mg/dL (7-20); CALCIUM 9.5 mg/dL (8.4-10.2); CARBON DIOXIDE 29 mmol/L (22-30); CHLORIDE 104 mmol/L (98-107); CHOLESTEROL 177.68 mg/dL (0-200); GLUCOSE 104 mg/dL (75-110); POTASSIUM 4.2 mmol/L (3.6-5.0); SODIUM 142.2 mmol/L (137-145); TRIGLYCERIDES 131 mg/dL (<150)
[2017-12-26 04:42] LABS: DIRECT LDL 95 mg/dL (<100)
[2017-12-26 04:46] LABS: TROPONIN I < 0.012 ng/mL
[2017-12-26] MEDS: ACETAMINOPHEN 325 MG TABLET PO PRN ×2 (06:49→10:53)
--- NOTE | 2017-12-26 07:16 | EKG REPORT ---
SEVERITY:- BORDERLINE ECG - SINUS RHYTHM BORDERLINE LEFT AXIS DEVIATION CONSIDER ANTERIOR INFARCT VS POOR V3 LEAD PLACEMENT : Confirmed by: Dada Oneill MD 26-Dec-2017 07:16:04
[2017-12-26] MEDS ORDERED: CLOPIDOGREL BISULFATE 75 MG TABLET PO SCH (10:00)
[2017-12-26] MEDS ORDERED: ASPIRIN 81 MG TABLET, ENT COATED PO SCH (10:00)
[2017-12-26] MEDS: ASPIRIN/DIPYRIDAMOLE 25-200 MG 1 CAP.SR CPMP.12HR PO SCH ×2 (10:05→21:40)
[2017-12-26] MEDS: FAMOTIDINE 20 MG TABLET PO SCH ×2 (10:06→21:40)
[2017-12-26] MEDS: ENOXAPARIN SODIUM INJ 40 MG/0.4 ML DISP.SYRIN SUBCUT SCH (10:06)
[2017-12-26 11:12] LABS: TROPONIN I < 0.012 ng/mL
--- NOTE | 2017-12-26 16:05 | RADIOLOGY REPORT (SQ) ---
EXAM DESCRIPTION: CAROTID DOPPLER COMPLETED DATE/TIME: 12/26/2017 3:49 pm REASON FOR STUDY: stoke COMPARISON: None. TECHNIQUE: Grayscale ultrasound, Doppler velocity and spectra, and color Doppler images acquired of the extra-cranial carotid and vertebral arteries. Images stored on PACS. LIMITATIONS: None. FINDINGS: RIGHT CAROTID CCA Velocities: Within normal limits. ICA Velocities Peak systolic 0.60 m/s. End diastolic 0.19 m/s. Proximal ICA/CCA peak systolic ratio 1.1. Spectra normal. No significant plaque. LEFT CAROTID CCA Velocities: Within normal limits. ICA Velocities Peak systolic 0.68 m/s. End diastolic 0.19 m/s. Proximal ICA/CCA peak systolic ratio 1.4. Spectra normal. No significant plaque. VERTEBRAL ARTERIES: Antegrade flow. Normal waveforms. SUBCLAVIAN ARTERIES: Not imaged. OTHER: No other significant finding. IMPRESSION: NO HEMODYNAMICALLY SIGNIFICANT STENOSIS. COMMENT: Quality ID #[id number]: Velocity criteria are extrapolated from the diameter data as defined by t he Society of Radiologists in Ultrasound Consensus Conference. Radiology 2003: 229; 340-346. TECHNICAL DOCUMENTATION: JOB ID: [id number] [employer]- All Rights Reserved Reading location - IP/workstation name: [email or web address]
--- NOTE | 2017-12-26 17:24 | PDOC H&P ---
History of Present Illness Admission Date/PCP: 12/25/17 21:35 EARNEST COLLAZO MD History of Present Illness: FATOUMATA KRUEGER is a 67 year old female ,she was seen in the office on Tuesday when she presented with symptoms of vertigo, gait disturbance, cerebellar lesion was suspected, MRI brain was ordered, this was done on 12/25/2017, it showed a few I signal intensity densities scattered throughout the white matter with distribution suggesting chronic microvascular ischemic change. The sulci and gyri are normal in size and contour. There is no evidence of hemorrhage, mass or extra-axial fluid collection. There is a focal 7.5 mm area of restricted diffusion in the left tl most likely acute infarct with this finding she was advised to go to the emergency room for further evaluation in the ER she was evaluated, hospital admission was advised. I saw her by the bedside the carotid Doppler was negative, she has no focal deficits other than ataxia Past Medical History Cardiac Medical History: Reports: Coronary Artery Disease, Hyperlipidema, Hypertension Pulmonary Medical History: Reports: Bronchitis, Pneumonia GI Medical History: Reports: Gastroesophageal Reflux Disease Musculoskeltal Medical History: Reports: Arthritis Psychiatric Medical History: Reports: Depression Past Surgical History Past Surgical History: Reports: Cardiac Catheterization - stent X2, Cholecystectomy, Hysterectomy, Orthopedic Surgery - carpal tunnel bilateral hands, spur on heel Social History Lives with: Family Smoking Status: Former Smoker Last Time Smoked: quit 96' Frequency of Alcohol Use: None Hx Recreational Drug Use: No Drugs: None Hx Prescription Drug Abuse: No Family History Family History: Reviewed & Not Pertinent Parental Family History Reviewed: Yes Children Family History Reviewed: Yes Sibling(s) Family History Reviewed.: Yes Medication/Allergy Home Medications: Aspirin [Ecotrin 81 mg EC Tablet] 81 mg PO DAILY 12/26/17 Bumetanide [Bumex 2 mg Tablet] 2 mg PO DAILY 12/26/17 Carvedilol [Coreg 25 mg Tablet] 25 mg PO Q12 12/26/17 Dexlansoprazole [Dexilant] 60 mg PO QHS 12/26/17 Fexofenadine HCl [Sabrina] 180 mg PO QHS 12/26/17 Lorazepam [Ativan 1 mg Tablet] 1 mg PO BID 12/26/17 Losartan/Hydrochlorothiazide [Hyzaar 100-12.5 Tablet] 1 each PO DAILY 12/26/17 Meclizine HCl [Antivert 25 mg Tablet] 25 mg PO TID 12/26/17 Oxycodone HCl/Acetaminophen [Oxycodone-Acetaminophen 10-325] 1 each PO Q6HP PRN 12/26/17 Pramipexole Di-HCl [Mirapex] 0.125 mg PO QHS 12/26/17 Pravastatin Sodium [Pravachol] 40 mg PO QHS 12/26/17 Zolpidem Tartrate [Ambien] 10 mg PO QHS 12/26/17 Allergies/Adverse Reactions: erythromycin base [Erythromycin Base] Allergy (Severe, Verified 12/25/17 19:18) stops breathing meperidine HCl [From Demerol] Allergy (Severe, Verified 12/25/17 19:18) VOMITING Review of Systems Constitutional: ABSENT: chills, fever(s), headache(s), weight gain, weight loss Eyes: ABSENT: visual disturbances Ears: ABSENT: hearing changes Cardiovascular: ABSENT: chest pain, dyspnea on exertion, edema, orthropnea, palpitations Respiratory: ABSENT: cough, hemoptysis Gastrointestinal: ABSENT: abdominal pain, constipation, diarrhea, hematemesis, hematochezia, nausea, vomiting Genitourinary: ABSENT: dysuria, hematuria Musculoskeletal: ABSENT: joint swelling Integumentary: ABSENT: rash, wounds Neurological: PRESENT: abnormal gait, vertigo Psychiatric: ABSENT: anxiety, depression, homidical ideation, suicidal ideation Endocrine: ABSENT: cold intolerance, heat intolerance, menstrual abnormalities, polydipsia, polyuria Hematologic/Lymphatic: ABSENT: easy bleeding, easy bruising, lymphadenopathy Physical Exam Vital Signs: Temp Pulse Resp BP Pulse Ox 97.7 F 84 18 127/71 H 84 L 12/26/17 15:45 12/26/17 16:00 12/26/17 16:00 12/26/17 16:00 12/26/17 16:00 Intake & Output 12/25/17 12/26/17 12/27/17 06:59 06:59 06:59 Intake Total 573 Output Total 500 200 Balance 73 -200 Weight 96.4 kg General appearance: PRESENT: no acute distress, well-developed, well-nourished Head exam: PRESENT: atraumatic, normocephalic Eye exam: PRESENT: conjunctiva pink, EOMI, PERRLA Ear exam: PRESENT: normal external ear exam Mouth exam: PRESENT: moist, tongue midline Neck exam: PRESENT: full ROM Respiratory exam: PRESENT: clear to auscultation nino Cardiovascular exam: PRESENT: RRR, +S1, +S2 Pulses: PRESENT: normal dorsalis pedis pul, +2 pedal pulses bilateral Vascular exam: PRESENT: normal capillary refill GI/Abdominal exam: PRESENT: normal bowel sounds, soft Rectal exam: PRESENT: deferred Neurological exam: PRESENT: alert, awake, oriented to person, oriented to place , oriented to time, oriented to situation, CN II-XII grossly intact Psychiatric exam: PRESENT: appropriate affect, normal mood Skin exam: PRESENT: dry, intact, warm Results Laboratory Results: 12/26/17 03:44 12/26/17 03:44 12/26/17 12/26/17 03:44 03:44 WBC 7.7 RBC 4.18 Hgb 12.1 Hct 37.1 MCV 89 MCH 28.8 MCHC 32.5 RDW 15.4 H Plt Count 263 Seg Neutrophils % 57.4 Lymphocytes % 31.8 Monocytes % 8.3 Eosinophils % 1.1 Basophils % 1.4 Absolute Neutrophils 4.4 Absolute Lymphocytes 2.4 Absolute Monocytes 0.6 Absolute Eosinophils 0.1 Absolute Basophils 0.1 Sodium 142.2 Potassium 4.2 Chloride 104 Carbon Dioxide 29 Anion Gap 9 BUN 41 H Creatinine 0.80 Est GFR ( Amer) > 60 Est GFR (Non-Af Amer) > 60 Glucose 104 Calcium 9.5 Triglycerides 131 Cholesterol 177.68 LDL Cholesterol Direct 95 VLDL Cholesterol 26.0 HDL Cholesterol 51 12/26/17 12/26/17 12/26/17 03:44 03:44 10:21 Creatine Kinase 44 42 CK-MB (CK-2) 1.00 Troponin I < 0.012 12/26/17 10:24 Creatine Kinase CK-MB (CK-2) 0.80 Troponin I < 0.012 Impressions: Carotid Doppler Study 12/26/17 00:00 IMPRESSION: NO HEMODYNAMICALLY SIGNIFICANT STENOSIS. Assessment & Plan - Diagnosis (1) Brain stem infarction Is this a current diagnosis for this admission?: Yes (2) Acute embolic stroke Is this a current diagnosis for this admission?: Yes Plan: She is admitted, managed per stroke protocol (3) Morbid obesity Is this a current diagnosis for this admission?: Yes (4) Coronary artery disease Qualifiers: Coronary Disease-Associated Artery/Lesion type: unspecified vessel or lesion type Is this a current diagnosis for this admission?: Yes (5) Chronic left maxillary sinusitis Is this a current diagnosis for this admission?: Yes
--- NOTE | 2017-12-26 18:09 | XCELERA REPORT ---
[address] [address] Transthoracic Echocardiogram Report Name: FATOUMATA KRUEGER Age: 67 yrs Gender: Female : 1950 Patient Status: Inpatient Patient Location: [address] [place] [address] Study Date: 12/26/2017 12:24 PM Height: 63 in Weight: 212 lb BSA: 2.0 m2 Procedure: A complete two-dimensional transthoracic echocardiogram was performed (2D, M-mode, spectral and color flow Doppler). The study was technically adequate with some images being suboptimal in quality. Reason For Study: angela Ordering Physician: TUCKER BARRIGA Performed By: Lynne Rivas Interpretation Summary The left ventricular ejection fraction is normal. Doppler measurements suggest impaired left ventricular relaxation, which is associated with grade I/IV or mild diastolic dysfunction There is mild concentric left ventricular hypertrophy. The left ventricle is grossly normal size. Wall motion cannot be accurately commented on, but no definite regional wall motion abnormalities noted. The right ventricular systolic function is normal. The right atrium is normal. The left atrial size is normal. There is a trace to mild amount of mitral regurgitation There is no mitral valve stenosis. There is no aortic valve stenosis There is a mild amount of aortic regurgitation There is no tricuspid stenosis. The aortic root is not well visualized but is probably normal size. The inferior vena cava appeared normal and decreased > 50% with respiration (RAP 5-10 mmHg) There is no pericardial effusion. No definite cardiac source of CVA/TIA noted on this particular trans- thoracic study. Consider JODY if clinically indicated. May consider mobile cardiac telemetry monitoring (MCT) for ruling out transient AFIB. MMode/2D Measurements & Calculations RVDd: 3.3 cm LVIDd: 4.7 cm FS: 27.7 % Ao root diam: 3.0 cm IVSd: 1.2 cm LVIDs: 3.4 cm EDV(Teich): 100.2 ml LVPWd: 1.3 cm ESV(Teich): 46.3 ml Ao root area: 6.9 cm2 EF(Teich): 53.8 % Doppler Measurements & Calculations MV E max zeynep: MV dec slope: Ao V2 max: AI max zeynep: 50.5 cm/sec 154.6 cm/sec 381.1 cm/sec MV A max zeynep: 193.5 cm/sec2 Ao max PG: AI max P.0 cm/sec MV dec time: 9.6 mmHg 58.1 mmHg MV E/A: 0.60 0.26 sec AI dec slope: 104.1 cm/sec2 AI P1/2t: 1073 msec LV V1 max PG: PA V2 max: 4.6 mmHg 109.4 cm/sec LV V1 max: PA max P.8 mmHg 107.3 cm/sec Left Ventricle The left ventricle is grossly normal size. There is mild concentric left ventricular hypertrophy. The left ventricular ejection fraction is normal. Doppler measurements suggest impaired left ventricular relaxation, which is associated with grade I/IV or mild diastolic dysfunction. Wall motion cannot be accurately commented on, but no definite regional wall motion abnormalities noted. Right Ventricle The right ventricle is grossly normal size. There is normal right ventricular wall thickness. The right ventricular systolic function is normal. Atria The right atrium is normal. The left atrial size is normal. Interarterial septum not well visualized and not well dopplered. Cannot comment on ASD/PFO presence. Mitral Valve The mitral valve is grossly normal. There is no mitral valve stenosis. There is a trace to mild amount of mitral regurgitation. Aortic Valve The aortic valve is grossly normal. There is no aortic valve stenosis. There is a mild amount of aortic regurgitation. Tricuspid Valve The tricuspid valve is not well visualized, but is grossly normal. There is no tricuspid stenosis. No tricuspid regurgitation. Pulmonic Valve The pulmonic valve is not well visualized. Great Vessels The aortic root is not well visualized but is probably normal size. The inferior vena cava appeared normal and decreased > 50% with respiration (RAP 5-10 mmHg). Effusions There is no pericardial effusion. Incidental Findings No definite cardiac source of CVA/TIA noted on this particular trans- thoracic study. Consider JODY if clinically indicated. May consider mobile cardiac telemetry monitoring (MCT) for ruling out transient AFIB. : TUCKER BARRIGA > Shan Espino
[2017-12-26] MEDS ORDERED: (PENDING PHARMACY ID) (Oxycodone Hcl/Acetaminophen [Oxycodone-Acetaminophen 10-325] 1 EACH PO PRN (20:13)
[2017-12-26] MEDS ORDERED: (PENDING PHARMACY ID) (Losartan/Hydrochlorothiazide [Hyzaar 100-12.5 Tablet] 1 EACH) PO SCH (20:15)
[2017-12-26] MEDS ORDERED: DULOXETINE HCL 30 MG CAPSULE.DR PO ONE (21:00)
[2017-12-26] MEDS ORDERED: HYDROCHLOROTHIAZIDE 12.5 MG CAPSULE PO ONE (21:30)
[2017-12-26] MEDS ORDERED: LOSARTAN POTASSIUM 50 MG TABLET PO ONE (21:30)
[2017-12-26] MEDS: MECLIZINE HCL 25 MG TABLET PO SCH (21:39)
[2017-12-26] MEDS: LANSOPRAZOLE 30 MG TAB.RAP.DR PO SCH (21:40)
[2017-12-26] MEDS: ATORVASTATIN CALCIUM 10 MG TABLET PO SCH (21:40)
[2017-12-26] MEDS: CARVEDILOL 12.5 MG TABLET PO SCH (21:40)
[2017-12-26] MEDS: LORATADINE 10 MG TABLET PO SCH (21:40)
[2017-12-26] MEDS: OXYCODONE HCL IR 5 MG TABLET PO PRN (21:41)
[2017-12-26] MEDS: OXYCODONE-ACETAMINOPHEN 5-325 MG TABLET PO PRN (21:41)
[2017-12-26] MEDS: PRAMIPEXOLE DI-HCL 0.25 MG TABLET PO SCH (21:55)
[2017-12-26] MEDS ORDERED: (PENDING PHARMACY ID) (Pravastatin Sodium [Pravachol] 40 MG) PO SCH (22:00)
[2017-12-26] MEDS ORDERED: (PENDING PHARMACY ID) (Pramipexole Di-Hcl [Mirapex] 0.125 MG) PO SCH (22:00)
[2017-12-27] MEDS: OXYCODONE HCL IR 5 MG TABLET PO PRN ×3 (04:40→18:52)
[2017-12-27] MEDS: OXYCODONE-ACETAMINOPHEN 5-325 MG TABLET PO PRN ×3 (04:40→18:52)
[2017-12-27 05:33] LABS: ABSOLUTE BASOPHILS # (AUTO) 0.1 10^3/uL (0.0-0.2); ABSOLUTE LYMPHOCYTES (AUTO) 2.1 10^3/uL (0.5-4.7); ABSOLUTE MONOCYTES (AUTO) 0.5 10^3/uL (0.1-1.4); ABSOLUTE NEUT (AUTO) 6.7 10^3/uL (1.7-8.2); EOSINOPHILS % (AUTO) 0.4 % (0-6); HEMATOCRIT 38.4 % (36.0-47.0); HEMOGLOBIN 12.7 g/dL (12.0-15.5); LYMPHOCYTES % (AUTO) 22.2 % (13-45); MEAN CORPUSCULAR HEMOGLOBIN 29.4 pg (27.0-33.4); MEAN CORPUSCULAR HGB CONC 33.1 g/dL (32.0-36.0); MEAN CORPUSCULAR VOLUME 89 fl (80-97); MONOCYTES % (AUTO) 5.4 % (3-13); PLATELET COUNT 289 10^3/uL (150-450); RED BLOOD COUNT 4.33 10^6/uL (3.72-5.28); RED CELL DISTRIBUTION WIDTH 15.1 % (11.5-14.0); TOTAL CELLS COUNTED % (AUTO) 100 %; WHITE BLOOD COUNT 9.4 10^3/uL (4.0-10.5)
[2017-12-27] MEDS: MECLIZINE HCL 25 MG TABLET PO SCH ×3 (05:55→21:44)
[2017-12-27 06:28] LABS: ANION GAP 9 (5-19); BLOOD UREA NITROGEN 37 mg/dL (7-20); CALCIUM 9.6 mg/dL (8.4-10.2); CARBON DIOXIDE 29 mmol/L (22-30); CHLORIDE 103 mmol/L (98-107); GLUCOSE 157 mg/dL (75-110); POTASSIUM 4.8 mmol/L (3.6-5.0); SODIUM 140.6 mmol/L (137-145)
[2017-12-27] MEDS: FAMOTIDINE 20 MG TABLET PO SCH ×2 (09:26→21:44)
[2017-12-27] MEDS: DULOXETINE HCL 30 MG CAPSULE.DR PO SCH (09:26)
[2017-12-27] MEDS: ENOXAPARIN SODIUM INJ 40 MG/0.4 ML DISP.SYRIN SUBCUT SCH (09:27)
[2017-12-27] MEDS: ASPIRIN/DIPYRIDAMOLE 25-200 MG 1 CAP.SR CPMP.12HR PO SCH (09:27)
[2017-12-27] MEDS: HYDROCHLOROTHIAZIDE 12.5 MG CAPSULE PO SCH (09:32)
[2017-12-27] MEDS: LOSARTAN POTASSIUM 50 MG TABLET PO SCH (09:33)
[2017-12-27] MEDS: CARVEDILOL 12.5 MG TABLET PO SCH ×2 (09:33→21:44)
--- NOTE | 2017-12-27 20:30 | PDOC PROGRESS REPORT ---
Subjective Progress Note for:: 12/27/17 Subjective:: Patient was seen by the bedside, she complained of headache, she had pontine stroke, she was started on Aggrenox the headache is most likely from Aggrenox, the medication will be discontinued and she will be started on Plavix. She will be be hopefully discharge home tomorrow if condition remains the same Reason For Visit: STROKE Physical Exam Vital Signs: Temp Pulse Resp BP Pulse Ox 98.0 F 62 16 102/58 L 94 12/27/17 19:39 12/27/17 19:39 12/27/17 19:39 12/27/17 19:39 12/27/17 19:39 Intake & Output 12/26/17 12/27/17 12/28/17 06:59 06:59 06:59 Intake Total 962 594 0953 Output Total 500 1000 Balance 73 -559 1526 Weight 96.4 kg 93.2 kg General appearance: PRESENT: no acute distress, well-developed, well-nourished Head exam: PRESENT: atraumatic, normocephalic Eye exam: PRESENT: conjunctiva pink, EOMI, PERRLA Ear exam: PRESENT: normal external ear exam Mouth exam: PRESENT: moist, tongue midline Neck exam: PRESENT: full ROM Respiratory exam: PRESENT: clear to auscultation nino Cardiovascular exam: PRESENT: RRR, +S1, +S2 Pulses: PRESENT: normal dorsalis pedis pul, +2 pedal pulses bilateral Vascular exam: PRESENT: normal capillary refill GI/Abdominal exam: PRESENT: normal bowel sounds, soft Rectal exam: PRESENT: deferred Neurological exam: PRESENT: alert, awake, oriented to person, oriented to place , oriented to time, oriented to situation, CN II-XII grossly intact Psychiatric exam: PRESENT: appropriate affect, normal mood Skin exam: PRESENT: dry, intact, warm Results Laboratory Results: 12/27/17 05:08 12/27/17 05:08 12/27/17 12/27/17 05:08 05:08 WBC 9.4 RBC 4.33 Hgb 12.7 Hct 38.4 MCV 89 MCH 29.4 MCHC 33.1 RDW 15.1 H Plt Count 289 Seg Neutrophils % 71.0 Lymphocytes % 22.2 Monocytes % 5.4 Eosinophils % 0.4 Basophils % 1.0 Absolute Neutrophils 6.7 Absolute Lymphocytes 2.1 Absolute Monocytes 0.5 Absolute Eosinophils 0.0 Absolute Basophils 0.1 Sodium 140.6 Potassium 4.8 Chloride 103 Carbon Dioxide 29 Anion Gap 9 BUN 37 H Creatinine 0.77 Est GFR ( Amer) > 60 Est GFR (Non-Af Amer) > 60 Glucose 157 H Calcium 9.6 12/26/17 12/26/17 12/26/17 03:44 03:44 10:21 Creatine Kinase 44 42 CK-MB (CK-2) 1.00 Troponin I < 0.012 12/26/17 10:24 Creatine Kinase CK-MB (CK-2) 0.80 Troponin I < 0.012 Impressions: Carotid Doppler Study 12/26/17 00:00 IMPRESSION: NO HEMODYNAMICALLY SIGNIFICANT STENOSIS. Assessment & Plan - Diagnosis (1) Brain stem infarction Is this a current diagnosis for this admission?: Yes (2) Acute embolic stroke Is this a current diagnosis for this admission?: Yes (3) Morbid obesity Is this a current diagnosis for this admission?: Yes (4) Coronary artery disease Qualifiers: Coronary Disease-Associated Artery/Lesion type: unspecified vessel or lesion type Is this a current diagnosis for this admission?: Yes (5) Chronic left maxillary sinusitis Is this a current diagnosis for this admission?: Yes - Plan Summary Plan Summary: Discontinue Aggrenox, start Plavix
[2017-12-27] MEDS: CLOPIDOGREL BISULFATE 75 MG TABLET PO SCH (21:44)
[2017-12-27] MEDS: LANSOPRAZOLE 30 MG TAB.RAP.DR PO SCH (21:44)
[2017-12-27] MEDS: ATORVASTATIN CALCIUM 10 MG TABLET PO SCH (21:44)
[2017-12-27] MEDS: LORATADINE 10 MG TABLET PO SCH (21:44)
[2017-12-27] MEDS: PRAMIPEXOLE DI-HCL 0.25 MG TABLET PO SCH (21:45)
[2017-12-28] MEDS: OXYCODONE-ACETAMINOPHEN 5-325 MG TABLET PO PRN ×4 (00:54→19:59)
[2017-12-28] MEDS: OXYCODONE HCL IR 5 MG TABLET PO PRN ×4 (00:55→19:59)
[2017-12-28 05:06] LABS: ABSOLUTE BASOPHILS # (AUTO) 0.1 10^3/uL (0.0-0.2); ABSOLUTE EOSINOPHILS # (AUTO) 0.1 10^3/uL (0.0-0.6); ABSOLUTE MONOCYTES (AUTO) 0.6 10^3/uL (0.1-1.4); ABSOLUTE NEUT (AUTO) 4.6 10^3/uL (1.7-8.2); BASOPHILS % (AUTO) 0.9 % (0-2); EOSINOPHILS % (AUTO) 0.9 % (0-6); HEMATOCRIT 34.5 % (36.0-47.0); HEMOGLOBIN 11.3 g/dL (12.0-15.5); LYMPHOCYTES % (AUTO) 36.3 % (13-45); MEAN CORPUSCULAR HEMOGLOBIN 29.3 pg (27.0-33.4); MEAN CORPUSCULAR HGB CONC 32.9 g/dL (32.0-36.0); MEAN CORPUSCULAR VOLUME 89 fl (80-97); PLATELET COUNT 264 10^3/uL (150-450); RED BLOOD COUNT 3.87 10^6/uL (3.72-5.28); RED CELL DISTRIBUTION WIDTH 14.4 % (11.5-14.0); SEGMENTED NEUTROPHILS % (AUTO) 54.9 % (42-78); TOTAL CELLS COUNTED % (AUTO) 100 %; WHITE BLOOD COUNT 8.3 10^3/uL (4.0-10.5)
[2017-12-28 05:24] LABS: ANION GAP 7 (5-19); BLOOD UREA NITROGEN 43 mg/dL (7-20); CALCIUM 9.2 mg/dL (8.4-10.2); CARBON DIOXIDE 29 mmol/L (22-30); CHLORIDE 102 mmol/L (98-107); GLUCOSE 93 mg/dL (75-110)
[2017-12-28] MEDS: MECLIZINE HCL 25 MG TABLET PO SCH ×3 (06:35→21:37)
[2017-12-28] MEDS: HYDROCHLOROTHIAZIDE 12.5 MG CAPSULE PO SCH (09:22)
[2017-12-28] MEDS: DULOXETINE HCL 30 MG CAPSULE.DR PO SCH (09:23)
[2017-12-28] MEDS: LOSARTAN POTASSIUM 50 MG TABLET PO SCH (09:23)
[2017-12-28] MEDS: FAMOTIDINE 20 MG TABLET PO SCH ×2 (09:23→21:37)
[2017-12-28] MEDS: ENOXAPARIN SODIUM INJ 40 MG/0.4 ML DISP.SYRIN SUBCUT SCH (09:24)
[2017-12-28] MEDS: CARVEDILOL 12.5 MG TABLET PO SCH ×2 (09:26→21:38)
--- NOTE | 2017-12-28 19:40 | PDOC DISCHARGE SUMMARY ---
General - Admit/Disc Date/PCP Admission Date/Primary Care Provider: 12/25/17 21:35 EARNEST COLLAZO MD Discharge Date: 12/29/17 - Discharge Diagnosis (1) Brain stem infarction Is this a current diagnosis for this admission?: Yes (2) Acute embolic stroke Is this a current diagnosis for this admission?: Yes (3) Morbid obesity Is this a current diagnosis for this admission?: Yes (4) Coronary artery disease Is this a current diagnosis for this admission?: Yes (5) Chronic left maxillary sinusitis Is this a current diagnosis for this admission?: Yes - Additional Information Prescriptions: Clopidogrel Bisulfate [Plavix 75 mg Tablet] 75 mg PO QHS #90 tablet Duloxetine HCl [Cymbalta 30 mg Capsule.] 60 mg PO DAILY #90 capsule. Home Medications: Bumetanide [Bumex 2 mg Tablet] 2 mg PO DAILY 12/26/17 Carvedilol [Coreg 25 mg Tablet] 25 mg PO Q12 12/26/17 Dexlansoprazole [Dexilant 60 mg Capsule] 60 mg PO QHS 12/26/17 Fexofenadine HCl [Sabrina] 180 mg PO QHS 12/26/17 Losartan/Hydrochlorothiazide [Hyzaar 100-12.5 Tablet] 1 each PO DAILY 12/26/17 Meclizine HCl [Antivert 25 mg Tablet] 25 mg PO TID 12/26/17 Oxycodone HCl/Acetaminophen [Oxycodone-Acetaminophen 10-325] 1 each PO Q6HP PRN 12/26/17 Pramipexole Di-HCl [Mirapex] 0.125 mg PO QHS 12/26/17 Pravastatin Sodium [Pravachol] 40 mg PO QHS 12/26/17 Clopidogrel Bisulfate [Plavix 75 mg Tablet] 75 mg PO QHS #90 tablet 12/28/17 Duloxetine HCl [Cymbalta 30 mg Capsule.] 60 mg PO DAILY #90 capsule. History of Present Illness History of Present Illness: FATOUMATA KRUEGER is a 67 year old female ,she was seen in the office on Tuesday when she presented with symptoms of vertigo, gait disturbance, cerebellar lesion was suspected, MRI brain was ordered, this was done on 12/25/2017, it showed a few I signal intensity densities scattered throughout the white matter with distribution suggesting chronic microvascular ischemic change. The sulci and gyri are normal in size and contour. There is no evidence of hemorrhage, mass or extra-axial fluid collection. There is a focal 7.5 mm area of restricted diffusion in the left tl most likely acute infarct with this finding she was advised to go to the emergency room for further evaluation in the ER she was evaluated, hospital admission was advised. I saw her by the bedside the carotid Doppler was negative, she has no focal deficits other than ataxia Hospital Course Hospital Course: She was admitted for the management of brainstem infarct. She was treated with antiplatelet aggrenox , statin with atorvastatin. She developed a headache to Aggrenox this was changed to Plavix. The carotid Doppler was negative for stenosis or occlusion, 2D echo was done it was normal. She was managed according to stroke protocol Physical Exam Vital Signs: Temp Pulse Resp BP Pulse Ox 97.9 F 57 L 12 105/60 98 12/28/17 16:28 12/28/17 16:28 12/28/17 16:28 12/28/17 16:28 12/28/17 16:28 Intake & Output 12/27/17 12/28/17 12/29/17 06:59 06:59 06:59 Intake Total 441 2726 729 Output Total 1000 200 850 Balance -559 2526 -121 Weight 93.2 kg 94.6 kg General appearance: PRESENT: no acute distress, well-developed, well-nourished Head exam: PRESENT: atraumatic, normocephalic Eye exam: PRESENT: conjunctiva pink, EOMI, PERRLA Ear exam: PRESENT: normal external ear exam Mouth exam: PRESENT: moist, tongue midline Neck exam: PRESENT: full ROM Respiratory exam: PRESENT: clear to auscultation nino Cardiovascular exam: PRESENT: RRR, +S1, +S2 Pulses: PRESENT: normal dorsalis pedis pul, +2 pedal pulses bilateral Vascular exam: PRESENT: normal capillary refill GI/Abdominal exam: PRESENT: normal bowel sounds, soft Rectal exam: PRESENT: deferred Neurological exam: PRESENT: alert, awake, oriented to person, oriented to place , oriented to time, oriented to situation, CN II-XII grossly intact Psychiatric exam: PRESENT: appropriate affect, normal mood Skin exam: PRESENT: dry, intact, warm Results Laboratory Results: 12/28/17 04:44 12/28/17 04:44 12/28/17 12/28/17 04:44 04:44 WBC 8.3 RBC 3.87 Hgb 11.3 L Hct 34.5 L MCV 89 MCH 29.3 MCHC 32.9 RDW 14.4 H Plt Count 264 Seg Neutrophils % 54.9 Lymphocytes % 36.3 Monocytes % 7.0 Eosinophils % 0.9 Basophils % 0.9 Absolute Neutrophils 4.6 Absolute Lymphocytes 3.0 Absolute Monocytes 0.6 Absolute Eosinophils 0.1 Absolute Basophils 0.1 Sodium 138.0 Potassium 4.0 Chloride 102 Carbon Dioxide 29 Anion Gap 7 BUN 43 H Creatinine 0.83 Est GFR ( Amer) > 60 Est GFR (Non-Af Amer) > 60 Glucose 93 Calcium 9.2 12/26/17 12/26/17 12/26/17 03:44 03:44 10:21 Creatine Kinase 44 42 CK-MB (CK-2) 1.00 Troponin I < 0.012 12/26/17 10:24 Creatine Kinase CK-MB (CK-2) 0.80 Troponin I < 0.012 Impressions: Carotid Doppler Study 12/26/17 00:00 IMPRESSION: NO HEMODYNAMICALLY SIGNIFICANT STENOSIS. Qualifiers - * PATEINT BEING DISCHARGED WITH ANY OF THE FOLLOWING DIAGNOSIS?: No
[2017-12-28] MEDS: LORATADINE 10 MG TABLET PO SCH (21:37)
[2017-12-28] MEDS: CLOPIDOGREL BISULFATE 75 MG TABLET PO SCH (21:37)
[2017-12-28] MEDS: PRAMIPEXOLE DI-HCL 0.25 MG TABLET PO SCH (21:37)
[2017-12-28] MEDS: ATORVASTATIN CALCIUM 10 MG TABLET PO SCH (21:38)
[2017-12-28] MEDS: LANSOPRAZOLE 30 MG TAB.RAP.DR PO SCH (21:38)
[2017-12-29] MEDS: OXYCODONE-ACETAMINOPHEN 5-325 MG TABLET PO PRN ×2 (04:13→09:46)
[2017-12-29] MEDS: OXYCODONE HCL IR 5 MG TABLET PO PRN (04:13)
[2017-12-29] MEDS: MECLIZINE HCL 25 MG TABLET PO SCH (05:45)
[2017-12-29] MEDS: ENOXAPARIN SODIUM INJ 40 MG/0.4 ML DISP.SYRIN SUBCUT SCH (08:57)
[2017-12-29] MEDS: DULOXETINE HCL 30 MG CAPSULE.DR PO SCH (09:02)
[2017-12-29] MEDS: FAMOTIDINE 20 MG TABLET PO SCH (09:03)
[2017-12-29] MEDS: HYDROCHLOROTHIAZIDE 12.5 MG CAPSULE PO SCH (09:04)
[2017-12-29] MEDS: LOSARTAN POTASSIUM 50 MG TABLET PO SCH (09:04)
[2017-12-29] MEDS: CARVEDILOL 12.5 MG TABLET PO SCH (09:04)
[2017-12-29 09:19] VITALS: BP 107/84
--- NOTE | 2018-01-03 17:28 | PDOC PROGRESS REPORT ---
Subjective Allergies/Adverse Reactions: erythromycin base [Erythromycin Base] Allergy (Severe, Verified 12/25/17 19:18) stops breathing meperidine HCl [From Demerol] Allergy (Severe, Verified 12/25/17 19:18) VOMITING Home Medications: Bumetanide [Bumex 2 mg Tablet] 2 mg PO DAILY 12/26/17 Carvedilol [Coreg 25 mg Tablet] 25 mg PO Q12 12/26/17 Dexlansoprazole [Dexilant 60 mg Capsule] 60 mg PO QHS 12/26/17 Fexofenadine HCl [Sabrina] 180 mg PO QHS 12/26/17 Losartan/Hydrochlorothiazide [Hyzaar 100-12.5 Tablet] 1 each PO DAILY 12/26/17 Meclizine HCl [Antivert 25 mg Tablet] 25 mg PO TID 12/26/17 Oxycodone HCl/Acetaminophen [Oxycodone-Acetaminophen 10-325] 1 each PO Q6HP PRN 12/26/17 Pramipexole Di-HCl [Mirapex] 0.125 mg PO QHS 12/26/17 Pravastatin Sodium [Pravachol] 40 mg PO QHS 12/26/17 Results - x laboratory: 12/26/17 12/26/17 12/26/17 03:44 03:44 03:44 WBC 7.7 RBC 4.18 Hgb 12.1 Hct 37.1 MCV 89 MCH 28.8 MCHC 32.5 RDW 15.4 H Plt Count 263 Seg Neutrophils % 57.4 Lymphocytes % 31.8 Monocytes % 8.3 Eosinophils % 1.1 Basophils % 1.4 Absolute Neutrophils 4.4 Absolute Lymphocytes 2.4 Absolute Monocytes 0.6 Absolute Eosinophils 0.1 Absolute Basophils 0.1 Sodium Potassium Chloride Carbon Dioxide Anion Gap BUN Creatinine Est GFR ( Amer) Est GFR (Non-Af Amer) Glucose Calcium Creatine Kinase 44 CK-MB (CK-2) 1.00 Troponin I < 0.012 Triglycerides Cholesterol LDL Cholesterol Direct VLDL Cholesterol HDL Cholesterol 12/26/17 12/26/17 12/26/17 03:44 10:21 10:24 WBC RBC Hgb Hct MCV MCH MCHC RDW Plt Count Seg Neutrophils % Lymphocytes % Monocytes % Eosinophils % Basophils % Absolute Neutrophils Absolute Lymphocytes Absolute Monocytes Absolute Eosinophils Absolute Basophils Sodium 142.2 Potassium 4.2 Chloride 104 Carbon Dioxide 29 Anion Gap 9 BUN 41 H Creatinine 0.80 Est GFR ( Amer) > 60 Est GFR (Non-Af Amer) > 60 Glucose 104 Calcium 9.5 Creatine Kinase 42 CK-MB (CK-2) 0.80 Troponin I < 0.012 Triglycerides 131 Cholesterol 177.68 LDL Cholesterol Direct 95 VLDL Cholesterol 26.0 HDL Cholesterol 51 12/27/17 12/27/17 12/28/17 05:08 05:08 04:44 WBC 9.4 8.3 RBC 4.33 3.87 Hgb 12.7 11.3 L Hct 38.4 34.5 L MCV 89 89 MCH 29.4 29.3 MCHC 33.1 32.9 RDW 15.1 H 14.4 H Plt Count 289 264 Seg Neutrophils % 71.0 54.9 Lymphocytes % 22.2 36.3 Monocytes % 5.4 7.0 Eosinophils % 0.4 0.9 Basophils % 1.0 0.9 Absolute Neutrophils 6.7 4.6 Absolute Lymphocytes 2.1 3.0 Absolute Monocytes 0.5 0.6 Absolute Eosinophils 0.0 0.1 Absolute Basophils 0.1 0.1 Sodium 140.6 Potassium 4.8 Chloride 103 Carbon Dioxide 29 Anion Gap 9 BUN 37 H Creatinine 0.77 Est GFR ( Amer) > 60 Est GFR (Non-Af Amer) > 60 Glucose 157 H Calcium 9.6 Creatine Kinase CK-MB (CK-2) Troponin I Triglycerides Cholesterol LDL Cholesterol Direct VLDL Cholesterol HDL Cholesterol 12/28/17 04:44 WBC RBC Hgb Hct MCV MCH MCHC RDW Plt Count Seg Neutrophils % Lymphocytes % Monocytes % Eosinophils % Basophils % Absolute Neutrophils Absolute Lymphocytes Absolute Monocytes Absolute Eosinophils Absolute Basophils Sodium 138.0 Potassium 4.0 Chloride 102 Carbon Dioxide 29 Anion Gap 7 BUN 43 H Creatinine 0.83 Est GFR ( Amer) > 60 Est GFR (Non-Af Amer) > 60 Glucose 93 Calcium 9.2 Creatine Kinase CK-MB (CK-2) Troponin I Triglycerides Cholesterol LDL Cholesterol Direct VLDL Cholesterol HDL Cholesterol Radiology: Carotid Doppler Study 12/26/17 00:00 IMPRESSION: NO HEMODYNAMICALLY SIGNIFICANT STENOSIS. Assessment and Plan - Plan Plan: Stroke Clinic Visit Todays Visit Date:01/03/2018 Hospital Discharge Date: 12/28/2017 Follow Up Phone Call Date: Reason for Todays Visit: Hospital Follow Up Summary of Recent Hospitalization: Patient is a 67-year-old female with a history of hypertension, hyperlipidemia, chronic pain, CAD, diabetes that is diet-controlled, GERD, osteoarthritis, depression, restless leg syndrome, and vertigo. Patient was admitted to [facility] on 12/25/2017 after having a 2 day history of gait instability. Patient saw her primary doctor 2 days prior to her ER visit and had an outpatient MRI. Patient was advised by her primary doctor to present to the emergency department after the results of her MRI demonstrated a CVA. Patient was started on Plavix during her admission. Patient had Ativan and Ambien discontinued and she was started on Cymbalta. Risk Stratification Labs: Hgb A1C-6% 07/2017 , Cholesterol 177, Triglycerides 133 ,HDL 51 , LDL 95 . Current Status: Patient was seen today for stroke/TIA clinic follow-up as part of the [facility] Study. Todays Post Stroke Functional Assessment was generated with an electronic eCare plan and the abbreviated results are listed below: Stroke Risk Factor Assessment: Stroke risk factor include: hypertension, diabetes, hyperlipidemia, obesity Today, BP 96/64, HR 66. Encouraged home self-monitoring and recording a log Patient diabetes managed with diet/gastric bypass surgery Patient is on pravachol daily for cholesterol: denies missing any doses Patient reports being active for at least 20 minutes each day, at least 3 days a week Patient denies any alcohol or illicit substance use. Medication list was reconciled Patient sees Dr Saez for primary care, and was seen yesterday. Patient has an upcoming appointment with PCP in March, although states she typically see' s PCP monthly. Pt has appt with pain management at 3 pm today. Stroke Complications Assessment: The patient denies any signs or symptoms of UTI, pneumonia, dehydration, bleeding (hematuria, melena), dysphagia, cognitive deficits, tightening of the extremities suggestive of spasticity, or depression. Patient denies any safety concerns (mismanaged medications, falls, or needing 24 hour supervision). The patient has had no ER visits since leaving [facility]. Subjective Assessment: The patient is independent with IADLS and ADLS. Patient has been cleared to drive per her PCP. Patient lives with her sister. Caregiver strain was verbally assessed, and no issues were identified. PMH: HTN, diabetes, HLD, chronic pain, osteoarthritis, CAD, GERD, depression, restless leg syndrome and vertigo PSH: Gastric bypass, cardiac cath with stent placement 2, cholecystectomy, hysterectomy, orthopedic surgery Allergies: Erythromycin, Demerol Social: Patient is a former smoker, denies any alcohol or illicit substance abuse. Patient does not work and lives with her sister. Patient reports that her spouse 3 months ago. ROS are negative what is located in the HPI. Objective Physical Exam: PHYSICAL EXAMINATION: GENERAL: Well-appearing and in no acute distress. HEAD: Atraumatic, normocephalic. EYES: Pupils equal round, extraocular movements intact, sclera anicteric, conjunctiva are normal. ENT: nares patent, Moist mucous membranes. NECK: Normal range of motion, supple without lymphadenopathy LUNGS: CTAB and equal. No wheezes rales or rhonchi. HEART: Regular rate and rhythm without murmurs EXTREMITIES: Normal range of motion, no pitting edema. No cyanosis. Strength to bilateral upper and lower extremities 5/5, normal horticulture superintendent laterally Neurologic: Mental status: the patient is alert and oriented to person, place, and time with clear and fluent speech. Extraocular movements are intact without ptosis. facial sensation is intact bilaterally light touch stimuli. Facial muscle strength is equal. Patient able to furrow and raise eyebrows normally. Hearing is normal to casual conversation. Palate and uvula elevate symmetrically. Voice is normal. Shoulder shrug strong bilaterally. Tongue protrudes midline and moves symmetrically. Motor: Good muscle tone. Strength is 5/5 bilaterally to upper and lower extremities, horticulture superintendent strength equal bilaterally. No evidence of rigidity or spasticity upon exam. No tremor noted. Cerebellar: steady gait with normal base. PSYCH: Normal mood, normal affect SKIN: warm, dry without any ecchymosis or skin lesions Modified Angelina scale: 0 Assessment Pt is a 67 year old who is here for hospital follow up of acute CVA. Stroke risk factors include hypertension, diabetes, hyperlipidemia, obesity. Plan Stroke Risk Factor Management: 1. Continue Plavix 75 mg daily for stroke prevention. -watch for signs of abnormal bleeding/bruising 2. Blood pressure: Goal BP <140/90 - blood pressure today 96/64 -take blood pressure measurements daily and keep a log for PCP to review -Blood pressure education was provided 3. Cholesterol: LDL 95. Goal LDL <70, HDL 51, goal HDL>50. -extensive cholesterol education was provided including therapeutic lifestyle changes and education -continue statin therapy, advised patient that she may need to have her medication adjusted to provide better risk reduction as she is not currently on high intensity therapy. Patient encouraged to see her primary doctor to review her current cholesterol medication regimen. Patient states she is unable to take Lipitor due to muscle aches. 4. Diabetes Management: goal A1c <7% -A1c not measured during this hospital admission -Follow up with PCP to optimize diabetes control and to reevaluate A1c 5. Rehabilitation: Maximize physical activity for full rehabilitation. -discussed fall risk factors and risk reduction strategies -physical activity as tolerated to a goal of 30 minutes exercise at least 5 days a week. -encouraged brain healthy activities such as puzzles, word searches. 6. Advance directives: -counselling was provided regarding advance directives -referred to PCP for additional educational documents
== END 2017-12-29 09:57 | disposition home or self-care (01) | DRG 66 ==
LOC: ER 19:12 → EH 21:35 → 3W 22:51
PROVIDERS: ADMIT Family Medicine; ATTEND Internal Medicine
DX: I63.19 Cerebral infarction due to embolism of other precerebral artery (principal); I66.9 Occlusion and stenosis of unspecified cerebral artery; R27.0 Ataxia, unspecified; I10 Essential (primary) hypertension; E78.5 Hyperlipidemia, unspecified; G89.29 Other chronic pain; J32.0 Chronic maxillary sinusitis; I25.10 Atherosclerotic heart disease of native coronary artery without angina pectoris; E11.9 Type 2 diabetes mellitus without complications; K21.9 Gastro-esophageal reflux disease without esophagitis; F32.9 Major depressive disorder, single episode, unspecified; G44.40 Drug-induced headache, not elsewhere classified, not intractable; T39.015A Adverse effect of aspirin, initial encounter; Y92.230 Patient room in hospital as the place of occurrence of the external cause; E66.01 Morbid (severe) obesity due to excess calories; Z79.82 Long term (current) use of aspirin; Z68.37 Body mass index [BMI] 37.0-37.9, adult; Z98.84 Bariatric surgery status; Z87.891 Personal history of nicotine dependence
CPT/HCPCS: 36415; 70551; 80048; 80061; 81001; 82550; 82553; 84484; 85025; 93005; 93010; 93306; 93880; 99285; G8978-GP; G8979-GP; G8980-GP; G8987-GO; G8988-GO; G8989-GO; J1650; J3490

== ENCOUNTER → 2017-12-25 | Outpatient (CLI) | payer MEDICARE, MEDICAID ==
--- NOTE | 2017-12-25 16:39 | RADIOLOGY REPORT (SQ) ---
EXAM DESCRIPTION: MRI HEAD WITHOUT COMPLETED DATE/TIME: 12/25/2017 4:25 pm REASON FOR STUDY: VERTIGO OF CENTRAL ORIGIN, UNSPEC EAR (H81.49) H81.49 VERTIGO OF CENTRAL ORIGIN, UNSPECIFIED EAR COMPARISON: 02/18/2013 TECHNIQUE: Multiplanar imaging includes non-contrasted T1, T2, FLAIR, and Diffusion with ADC map seq uences. Thin slice axial images in the posterior fossa. Heme sensitive imaging. Images stored on [employer]. LIMITATIONS: None. FINDINGS: ANATOMY: No anomalies. Normal vascular flow voids. Pituitary fossa normal. CSF SPACES: Normal in size and contour. No hemorrhage. CEREBRUM: A few high-signal intensity lesions scattered throughout the white matter on FLAIR imaging with distribution suggesting chronic micro-vascular ischemic change. Sulci and gyri normal in size a nd contour. No evidence of hemorrhage, mass or extraaxial fluid collection. POSTERIOR FOSSA: There is a focal 7.5 mm area of restricted diffusion in the left tl. Most likely acute infarct. DIFFUSION: Positive for restricted diffusion in the tl. ORBITS: No masses. Globes normal. PARANASAL SINUSES: Complete opacification of the left maxillary sinus. OTHER: No other significant finding. IMPRESSION: Focal area of restricted diffusion in the tl most likely acute infarction. Mild microvascular ischemia. Marked chronic left maxillary sinus disease. EVIDENCE OF ACUTE STROKE: Yes LEFT VERTEBROBASILAR TECHNICAL DOCUMENTATION: JOB ID: [id number] [employer]- All Rights Reserved Reading location - IP/workstation name: [email or web address]
== END ==
LOC: RAD 14:56
PROVIDERS: ATTEND Internal Medicine
DX: H81.49 Vertigo of central origin, unspecified ear (principal)
CPT/HCPCS: 70551

== ENCOUNTER 2018-01-07 19:27 | Emergency (ER) | payer MEDICARE, MEDICAID ==
[2018-01-07] MEDS ORDERED: ACETAMINOPHEN 325 MG TABLET PO ONE (21:18)
[2018-01-07] MEDS ORDERED: MORPHINE SULFATE IR 15 MG TABLET PO ONE (21:18)
[2018-01-07] MEDS ORDERED: LIDOCAINE 5% (700 MG) TRANSDERMAL ADH..PATCH TP ONE (21:18)
--- NOTE | 2018-01-07 21:22 | ER Document Report ---
ED General - General Chief Complaint: Fall Stated Complaint: FALL Time Seen by Provider: 01/07/18 20:42 Notes: Patient is a 67 year old female who presents after mechanical fall. The patient states that she was bending over when she became distracted when her significant other began speaking to her. This caused her to fall forward striking her left knee and right chest wall. She states that when she went to bed she had some mild pain to her left knee but otherwise had no significant pain. However when she woke up she notes that she had developed a dull, constant, throbbing pain to the right side of her neck, her right lower chest wall as well as ongoing pain in her left knee. She tried Percocet without any improvement of the pain. Movement of any of the affected areas worsens the pain. She denies any history of similar symptoms in the past. She denies hitting her head or neck during the fall. She is notes that she had no neck pain whatsoever until waking up this morning. She denies any focal weakness or numbness. No vomiting or confusion. She does take clopidogrel but no additional anticoagulants. She has not seen her primary care doctor regarding today's concerns. TRAVEL OUTSIDE OF THE [place] IN LAST 30 DAYS: No - Related Data Allergies/Adverse Reactions: erythromycin base [Erythromycin Base] Allergy (Severe, Verified 12/25/17 19:18) stops breathing meperidine HCl [From Demerol] Allergy (Severe, Verified 12/25/17 19:18) VOMITING morphine Allergy (Verified 01/07/18 21:25) Past Medical History - General Information source: Patient - Social History Smoking Status: Former Smoker Chew tobacco use (# tins/day): No Frequency of alcohol use: None Drug Abuse: None Lives with: Spouse/Significant other Family History: Reviewed & Not Pertinent Patient has suicidal ideation: No Patient has homicidal ideation: No - Past Medical History Cardiac Medical History: Reports: Hx Coronary Artery Disease, Hx Hypercholesterolemia, Hx Hypertension Denies: Hx Congestive Heart Failure, Hx Heart Attack Pulmonary Medical History: Reports: Hx Bronchitis, Hx Pneumonia Denies: Hx Asthma, Hx COPD, Hx Tuberculosis Neurological Medical History: Denies: Hx Seizures Endocrine Medical History: Reports: Hx Diabetes Mellitus Type 2 - Diet controlled Renal/ Medical History: Reports: Hx Kidney Stones. Denies: Hx End Stage Renal Disease, Hx Peritoneal Dialysis GI Medical History: Reports: Hx Gastroesophageal Reflux Disease. Denies: Hx Cirrhosis, Hx Ulcer Musculoskeltal Medical History: Reports Hx Arthritis, Denies Hx Multiple Sclerosis Psychiatric Medical History: Reports: Hx Depression Denies: Hx Bipolar Disorder, Hx Schizophrenia Past Surgical History: Reports: Hx Abdominal Surgery - Gastric bypass, Hx Cardiac Catheterization - stent X2, Hx Cholecystectomy, Hx Hysterectomy, Hx Orthopedic Surgery - carpal tunnel bilateral hands, spur on heel - Immunizations Immunizations up to date: Yes Hx Diphtheria, Pertussis, Tetanus Vaccination: Yes Hx Pneumococcal Vaccination: 10/03/07 Review of Systems - Review of Systems Notes: Constitutional: Negative for fever. Eyes: Negative for visual changes. ENT: Negative for facial injury Cardiovascular: Positive for chest injury. Respiratory: Negative for shortness of breath. Gastrointestinal: Negative for abdominal injury. Genitourinary: Negative for genital injury Musculoskeletal: Positive for left knee injury, positive for right-sided neck pain Skin: Negative for laceration/abrasions. Neurological: Negative for head injury. Physical Exam - Vital signs Vitals: Temp Pulse Resp BP Pulse Ox 97.9 F 70 16 96/57 L 94 01/07/18 19:48 01/07/18 19:48 01/07/18 19:48 01/07/18 19:48 01/07/18 19:48 Interpretation: Normal Notes: PHYSICAL EXAMINATION: GENERAL: Well-appearing, no acute distress. HEAD: Atraumatic, normocephalic. EYES: Pupils equal round and reactive to light, extraocular movements intact, sclera anicteric, conjunctiva are normal. ENT: nares patent, no oral pharyngeal trauma. No hemotympanum, no Blevins's sign , no raccoon eyes. NECK: No midline cervical spine tenderness. Patient able to move their head to 45 bilaterally without any discomfort. Mild pain on palpation of the right sternocleidomastoid muscle. LUNGS: Breath sounds clear to auscultation bilaterally and equal. No wheezes rales or rhonchi. HEART: Regular rate and rhythm without murmurs. CHEST WALL: No ecchymosis over the chest wall. ABDOMEN: Soft, nontender, normoactive bowel sounds. No guarding, no rebound. No seatbelt sign. EXTREMITIES: Normal range of motion, no pitting or edema. Mild bruising and swelling to the left knee joint. No long bone deformities. BACK: No midline spinal tenderness, step-offs, or deformities. NEUROLOGICAL: Face symmetric. Tongue protrudes midline. Extraocular motions intact. Pupils are 2 mm and equally reactive. Normal speech. 5 out of 5 strength in both the distal and proximal upper and lower extremities bilaterally. Sensation is grossly intact throughout. Finger to nose testing normal. Pronator drift normal. PSYCH: Normal mood, normal affect. SKIN: Warm, Dry, normal turgor, no rashes or lesions noted. Course - Re-evaluation Re-evalutation: 01/07/18 21:20 Presentation of a well patient in no acute distress, vitals within normal limits after a fall last night that was mechanical in nature. No focal neurologic deficits on exam, no evidence of basilar skull fracture on exam without evidence of hemotympanum, raccoon eyes, or periauricular hematoma. No papilledema. Patient is not on anticoagulation. GCS is 15. No loss of consciousness. No episodes of vomiting. Patient did not hit her head. No indication for CT imaging of the head at this time. Patient also evaluated by nexus criteria and found to be negative. No clinical evidence to suggest increased risk of cervical spine fracture. No indication for further imaging of the cervical spine. Patient does have pain on palpation of the right sternocleidomastoid and notes that she did not have any neck pain after a fall last evening this morning after waking up. Patient's only extremity complaint is right knee pain and swelling again which has worsened since the fall. She has full flexion and extension of the knee but has pain with flexion past 45. An x-ray obtained of this area is negative for any acute fracture. NAS is greater than 0.9. No additional extremity findings on examination. Abdominal examination unremarkable to any areas of focal tenderness or bruising. Patient does have some mild pain on palpation of the right lower ribs and a chest x-ray was obtained which does not show any acute fractures or pulmonary contusions. Patient has no flank tenderness. There is no obvious findings on trauma exam today and therefore no further imaging or evaluation will be obtained at this time. I've instructed the patient to return to emergency room immediately should they have any worsening or new symptoms that are concerning to them. - Vital Signs Vital signs: Temp Pulse Resp BP Pulse Ox 98.4 F 70 12 100/62 99 01/07/18 22:40 01/07/18 19:48 01/07/18 22:39 01/07/18 22:39 01/07/18 22:39 - Diagnostic Test Radiology reviewed: Image reviewed, Reports reviewed Radiology results interpreted by me: 01/07/18 22:30 Chest x-ray: No acute infiltrate or pneumothorax. No rib fractures. Discharge - Discharge Clinical Impression: Rib injury Fall Qualifiers: Encounter type: initial encounter Qualified Code(s): W19.XXXA - Unspecified fall, initial encounter Left knee injury Qualifiers: Encounter type: initial encounter Qualified Code(s): S89.92XA - Unspecified injury of left lower leg, initial encounter Neck strain Qualifiers: Encounter type: initial encounter Qualified Code(s): S16.1XXA - Strain of muscle, fascia and tendon at neck level, initial encounter Condition: Good Disposition: HOME, SELF-CARE Additional Instructions: You have been seen in the Emergency Department (ED) today following a fall. Your workup today did not reveal any injuries that require you to stay in the hospital. You can expect, though, to be stiff and sore for the next several days. Apply the Voltaren gel as prescribed. You can apply a hot pack or electric heating pad to the sore areas. You can also use topical "Aspercreme with lidocaine" to sore areas as needed. Take Tylenol 1000 mg every 4 hours for pain. Please follow up with your primary care doctor as soon as possible regarding today's ED visit and your recent fall. Call your doctor or return to the ED if you develop a sudden or severe headache , confusion, slurred speech, facial droop, weakness or numbness in any arm or leg, extreme fatigue, vomiting more than two times, severe abdominal pain, or other symptoms that concern you. Prescriptions: Diclofenac Sodium [Voltaren] 4 gm TP TID PRN #100 gel..gram. PRN Reason: Referrals: EARNEST COLLAZO MD [Primary Care Provider] - Follow up in 3-5 days
[2018-01-07] MEDS ORDERED: TRAMADOL HCL 50 MG TABLET PO ONE (21:23)
--- NOTE | 2018-01-07 22:01 | RADIOLOGY REPORT (SQ) ---
EXAM DESCRIPTION: CHEST 2 VIEWS COMPLETED DATE/TIME: 01/07/2018 9:50 pm REASON FOR STUDY: fall COMPARISON: 07/21/2017. EXAM PARAMETERS: NUMBER OF VIEWS: two views TECHNIQUE: Digital Frontal and Lateral radiographic views of the chest acquired. RADIATION DOSE: NA LIMITATIONS: none FINDINGS: LUNGS AND PLEURA: No opacities, masses or pneumothorax. No pleural effusion. MEDIASTINUM AND HILAR STRUCTURES: No masses or contour abnormalities. HEART AND VASCULAR STRUCTURES: Heart normal size. No evidence for failure. BONES: No acute findings. HARDWARE: None in the chest. OTHER: No other significant finding. IMPRESSION: NO ACUTE RADIOGRAPHIC FINDING IN THE CHEST. TECHNICAL DOCUMENTATION: JOB ID: [id number]- All Rights Reserved Reading location - IP/workstation name: [email or web address]
--- NOTE | 2018-01-07 22:01 | RADIOLOGY REPORT (SQ) ---
EXAM DESCRIPTION: KNEE LEFT 3 VIEWS COMPLETED DATE/TIME: 01/07/2018 9:50 pm REASON FOR STUDY: fall COMPARISON: None. NUMBER OF VIEWS: Four views. TECHNIQUE: AP, lateral, and both oblique radiographic images acquired of the left knee. LIMITATIONS: None. FINDINGS: MINERALIZATION: Normal. BONES: No acute fracture or dislocation. Marked joint space narrowing with osteophytes No worrisome bone lesions. JOINT: No effusion. SOFT TISSUES: No soft tissue swelling. No radio-opaque foreign body. OTHER: No other significant finding. IMPRESSION: DEGENERATIVE CHANGES. NO RADIOGRAPHIC EVIDENCE OF ACUTE INJURY. TECHNICAL DOCUMENTATION: JOB ID: [id number] [employer]- All Rights Reserved Reading location - IP/workstation name: [email or web address]
[2018-01-07 23:20] VITALS: BP 100/62
== END 2018-01-07 22:44 | disposition home or self-care (01) ==
LOC: ER 19:27
DX: S16.1XXA Strain of muscle, fascia and tendon at neck level, initial encounter (principal); S89.92XA Unspecified injury of left lower leg, initial encounter; S29.9XXA Unspecified injury of thorax, initial encounter; M79.89 Other specified soft tissue disorders; M54.2 Cervicalgia; W19.XXXA Unspecified fall, initial encounter; Z87.891 Personal history of nicotine dependence; Z79.899 Other long term (current) drug therapy; I25.10 Atherosclerotic heart disease of native coronary artery without angina pectoris; I10 Essential (primary) hypertension; E11.9 Type 2 diabetes mellitus without complications
CPT/HCPCS: 99283; 71046; 73562; A9270 ×2

== ENCOUNTER → 2018-01-10 | Outpatient (CLI) | payer MEDICARE, MEDICAID ==
--- NOTE | 2018-01-10 14:53 | RADIOLOGY REPORT (SQ) ---
EXAM DESCRIPTION: C SP 3 VWS OR LESS COMPLETED DATE/TIME: 01/10/2018 2:20 pm REASON FOR STUDY: CERVICALGIA M54.2 CERVICALGIA Neck pain for 1 month COMPARISON: None. NUMBER OF VIEWS: AP and lateral cervical spine TECHNIQUE: AP, lateral radiographic images acquired of the cervical spine. LIMITATIONS: None. FINDINGS: MINERALIZATION: Osteopenic ALIGNMENT: Anatomic. VERTEBRAE: Vertebral bodies of normal height. DISCS: Disc space loss of height at C6-7 with mild anterior osteophyte formation HARDWARE: None in the spine. SOFT TISSUES: No masses or calcifications. Lung apices clear. OTHER: No other significant finding. IMPRESSION: No acute findings TECHNICAL DOCUMENTATION: JOB ID: [id number] [employer]- All Rights Reserved Reading location - IP/workstation name: [email or web address]
== END ==
LOC: OD 14:08
PROVIDERS: ATTEND Internal Medicine
DX: M54.2 Cervicalgia (principal)
CPT/HCPCS: 72040

== ENCOUNTER 2018-02-23 11:15 | Day surgery (SDC) | payer MEDICARE, MEDICAID ==
[~2018-02-23 11:15] MED LIST: CHONDR SU A NA/HYALUR INTRAOC KIT (SURGICARE) ONE; EPINEPHRINE INJ/PF 1 MG/1 ML AMPULE ONE; KETOROLAC TROMETHAMINE 0.45% 4 DROP/0.4 ML DROPERETTE OS PRN; LIDOCAINE 1% INJ-PF (10 MG/ML) 30 ML SDV ONE
[2018-02-23] MEDS: TROPICAMIDE 1% OPH SOLN 3 ML OS PRN ×3 (11:32→11:52)
[2018-02-23] MEDS: TETRACAINE HCL 0.5% OPH SOLN 2 ML OS PRN ×3 (11:32→12:03)
[2018-02-23] MEDS: CYCLOPENTOLATE 0.2%/PHENYLEPHRINE 1% OPH SOLN 2 ML OS PRN ×3 (11:32→11:52)
[2018-02-23] MEDS: BESIFLOXACIN HCL 0.6% OPH SUSP 5 ML BOTTLE OS PRN ×3 (11:33→12:24)
[2018-02-23] MEDS ORDERED: MIDAZOLAM 2 MG/2 ML INJ ONE (11:37)
[2018-02-23] MEDS ORDERED: LIDOCAINE 1%/PHENYLEPHRINE 1.5% 1 ML VIAL ONE (13:11)
--- NOTE | 2018-02-28 15:10 | [facility] OPERATIVE REPORT E ---
[facility] Operative Report NAME: FATOUMATA KRUEGER AGE: 68Y DATE OF SURGERY: 02/23/2018 ROOM: PREOPERATIVE DIAGNOSES: 1. CATARACT, LEFT EYE. 2. PUPIL MIOSIS, LEFT EYE. POSTOPERATIVE DIAGNOSES: 1. CATARACT, LEFT EYE. 2. PUPIL MIOSIS, LEFT EYE. OPERATION: Cataract extraction with use of a Malyugin ring, complex, left eye. SURGEON: RITO SOLOMON M.D. ANESTHESIA: Topical. COMPLICATIONS: None. ESTIMATED BLOOD LOSS: None. PROCEDURE: After obtaining appropriate consent, the patient left eye was prepped and draped in sterile fashion as well as the surgeon in a sterile manner, and the cataract surgery was started. First, the paracentesis blade was used to make a small side-port incision. Viscoelastic was used to inflate the anterior chamber. Next a 2.4 mm incision was made using a 2.4 mm keratome. At this point, the pupil was less than 4.5 mm and was very miotic. In order to complete the capsulorhexis, a Malyugin ring was inserted and found to be in excellent position to help stabilize the pupil. Following this, a continuous capsulorhexis was made using a cystitome and Utrata forceps. Following this, hydrodissection was carried out to make the lens fully loose and mobile, and it was rotated 90 degrees. Following this, a divide and conquer technique was used to phacoemulsify the lens with a CDE of approximately 7.48. The remaining cortex was removed with irrigation/aspiration. Provisc was instilled into the capsular bag to inflate the bag. A SN60WF lens of 23.5 diopters was placed. The remaining viscoelastic material was removed with irrigation/aspiration. After this the Malyugin ring was removed. Following this, the incision was found to be watertight. Besivance was instilled into the eye and a protective shield was placed over the eye. The patient returned to the postoperative recovery in stable condition. This was a complex case due to the fact that the Malyugin ring was used due to poor pupillary dilation of less than or equal to 4 mm. Prior to making the capsulorrhexis a Malyugin ring was inserted due to poor pupillary dilation and pupil miosis. This was removed at the end of the case. DICTATING PHYSICIAN: RITO SOLOMON M.D. [id number] PHY#: [id number] ID: [id number] JOB#: [id number] ACCT: [id number] cc:RITO SOLOMON M.D. >
--- NOTE | 2018-02-28 15:15 | [facility] DISCHARGE SUMMARY E ---
[facility] Discharge Summary NAME: FATOUMATA KRUEGER AGE: 68Y ADMITTED: 02/23/2018 DISCHARGED: 02/23/2018 DIAGNOSES: 1. Cataract of the left eye. 2. Pupil miosis of the left eye requiring a Malyugin ring. SUMMARY: This is a 68-year-old female who underwent complex cataract extraction with use of a Malyugin ring. She underwent surgery because she was having difficulty driving at night secondary to glare from headlights. DISCHARGE INSTRUCTIONS: She should be on a regular diet, no bending at her waist, and no heavy lifting. She should use her Besivance, Ilevro, and Durezol at 3 p.m. and 8 p.m. and sleep with a rigid shield. I will see her for her 1-day postoperative. DICTATING PHYSICIAN: RITO SOLOMON M.D. [id number] PHY#: [id number] ID: [id number] JOB#: [id number] ACCT: [id number] cc:RITO SOLOMON M.D. >
== END 2018-02-23 13:04 | disposition home or self-care (01) ==
LOC: SC 11:15
PROVIDERS: ATTEND Internal Medicine
DX: H25.13 Age-related nuclear cataract, bilateral (principal); E11.3293 Type 2 diabetes mellitus with mild nonproliferative diabetic retinopathy without macular edema, bilateral; H35.3131 Nonexudative age-related macular degeneration, bilateral, early dry stage; H40.013 Open angle with borderline findings, low risk, bilateral; H57.03 Miosis; E11.9 Type 2 diabetes mellitus without complications; I10 Essential (primary) hypertension; M19.90 Unspecified osteoarthritis, unspecified site; I51.9 Heart disease, unspecified; Z86.73 Personal history of transient ischemic attack (TIA), and cerebral infarction without residual deficits; Z87.891 Personal history of nicotine dependence; Z88.5 Allergy status to narcotic agent; Z88.1 Allergy status to other antibiotic agents; Z88.8 Allergy status to other drugs, medicaments and biological substances; Z79.899 Other long term (current) drug therapy; Z79.891 Long term (current) use of opiate analgesic; Z79.02 Long term (current) use of antithrombotics/antiplatelets
CPT/HCPCS: 66982; V2632; J2250; J3490; A9270; J0171; J2370; 142

== ENCOUNTER 2018-02-25 20:22 | Emergency (ER) | payer MEDICARE, MEDICAID ==
[2018-02-25] MEDS ORDERED: DIPH/PERTUSS(ACELL)/TETANUS VAC/PF 0.5 ML SYR (>=10YO) IM ONE (20:37)
[2018-02-25] MEDS ORDERED: ACETAMINOPHEN 325 MG TABLET PO ONE (20:37)
--- NOTE | 2018-02-25 20:39 | ER Document Report ---
ED Medical Screen (RME) - General Chief Complaint: Fall Stated Complaint: FALL/ARM SIDE AND KNEE PAIN Time Seen by Provider: 02/25/18 20:33 Notes: RAPID MEDICAL EVALUATION DISCLOSURE I have seen this patient as part of a Rapid Medical Evaluation and, if applicable, placed any initially appropriate orders. The patient will be seen and fully evaluated, including a full history and physical exam, by a provider ( in Main ED or Fast Track) when a room becomes available. 68-year-old female here with complaints of right arm and chest wall pain after falling several hours ago. Her shoe "got caught up on the steps" and she fell forward onto her knees. She states her knees and legs always hurt and that it is unchanged from baseline. She did not hit her head, she reports. She does not remember her last tetanus. EXAM Anterior chest wall TTP Right mid arm TTP Abrasions to both knees TRAVEL OUTSIDE OF THE [place] IN LAST 30 DAYS: No - Related Data Allergies/Adverse Reactions: erythromycin base [Erythromycin Base] Allergy (Severe, Verified 12/25/17 19:18) stops breathing meperidine HCl [From Demerol] Allergy (Severe, Verified 12/25/17 19:18) VOMITING morphine Allergy (Verified 01/07/18 21:25) Past Medical History - Social History Chew tobacco use (# tins/day): No Frequency of alcohol use: None Drug Abuse: None - Past Medical History Cardiac Medical History: Reports: Hx Coronary Artery Disease, Hx Hypercholesterolemia, Hx Hypertension Denies: Hx Congestive Heart Failure, Hx Heart Attack Pulmonary Medical History: Reports: Hx Bronchitis, Hx Pneumonia Denies: Hx Asthma, Hx COPD, Hx Tuberculosis Neurological Medical History: Denies: Hx Cerebrovascular Accident, Hx Seizures Endocrine Medical History: Reports: Hx Diabetes Mellitus Type 2 - Diet controlled Renal/ Medical History: Reports: Hx Kidney Stones. Denies: Hx End Stage Renal Disease, Hx Peritoneal Dialysis GI Medical History: Reports: Hx Gastroesophageal Reflux Disease, Hx Ulcer - HX OF. Denies: Hx Cirrhosis, Hx Hepatitis, Hx Hiatal Hernia Musculoskeltal Medical History: Reports Hx Arthritis, Denies Hx Multiple Sclerosis Psychiatric Medical History: Reports: Hx Depression Denies: Hx Bipolar Disorder, Hx Schizophrenia Infectious Medical History: Denies: Hx Hepatitis Past Surgical History: Reports: Hx Abdominal Surgery - Gastric bypass, Hx Cardiac Catheterization - stent X2, Hx Cholecystectomy, Hx Hysterectomy, Hx Orthopedic Surgery - carpal tunnel bilateral hands, spur on heel. Denies: Hx Mastectomy, Hx Open Heart Surgery, Hx Pacemaker - Immunizations Immunizations up to date: Yes Hx Diphtheria, Pertussis, Tetanus Vaccination: Yes History of Influenza Vaccine for 07/2017 - 12/2017 Season: Yes Influenza Administration Date for 07/2017 - 12/2017 Season: 07/21/17 Physical Exam - Vital signs Vitals: Temp Pulse Resp BP Pulse Ox 98.3 F 81 16 129/63 H 98 02/25/18 20:28 02/25/18 20:28 02/25/18 20:28 02/25/18 20:28 02/25/18 20:28 Course - Vital Signs Vital signs: Temp Pulse Resp BP Pulse Ox 98.3 F 81 16 129/63 H 98 02/25/18 20:28 02/25/18 20:28 02/25/18 20:28 02/25/18 20:28 02/25/18 20:28
[2018-02-25] MEDS ORDERED: OXYCODONE HCL IR 5 MG TABLET PO ONE (20:52)
--- NOTE | 2018-02-25 21:01 | ER Document Report ---
ED Fall - General Chief Complaint: Fall Stated Complaint: FALL/ARM SIDE AND KNEE PAIN Time Seen by Provider: 02/25/18 20:33 Notes: Patient is a 68-year-old female comes emergency department for chief complaint of fall, she states she got tangled up with her shoes, fell onto a wooden porch with outdoor carpet, she states that she skinned her knees and she also hit her right arm/shoulder area on the hard surface. She reports pain in her mid right arm, pain over the right anterior chest wall, she denies neck pain, back pain, knee pain, abdominal pain, difficulty breathing, head injury, headache, nausea or vomiting. She is on Plavix. Fall happened this morning. TRAVEL OUTSIDE OF THE [place] IN LAST 30 DAYS: No - Related data Allergies/Adverse Reactions: erythromycin base [Erythromycin Base] Allergy (Severe, Verified 12/25/17 19:18) stops breathing meperidine HCl [From Demerol] Allergy (Severe, Verified 12/25/17 19:18) VOMITING morphine Allergy (Verified 01/07/18 21:25) Past Medical History - General Information source: Patient - Social History Smoking Status: Former Smoker Chew tobacco use (# tins/day): No Frequency of alcohol use: None Drug Abuse: None Lives with: Family Family History: Reviewed & Not Pertinent Patient has suicidal ideation: No Patient has homicidal ideation: No - Past Medical History Cardiac Medical History: Reports: Hx Coronary Artery Disease, Hx Hypercholesterolemia, Hx Hypertension Denies: Hx Congestive Heart Failure, Hx Heart Attack Pulmonary Medical History: Reports: Hx Bronchitis, Hx Pneumonia Denies: Hx Asthma, Hx COPD, Hx Tuberculosis Neurological Medical History: Denies: Hx Cerebrovascular Accident, Hx Seizures Endocrine Medical History: Reports: Hx Diabetes Mellitus Type 2 - Diet controlled Renal/ Medical History: Reports: Hx Kidney Stones. Denies: Hx End Stage Renal Disease, Hx Peritoneal Dialysis GI Medical History: Reports: Hx Gastroesophageal Reflux Disease, Hx Ulcer - HX OF. Denies: Hx Cirrhosis, Hx Hepatitis, Hx Hiatal Hernia Musculoskeltal Medical History: Reports Hx Arthritis, Denies Hx Multiple Sclerosis Psychiatric Medical History: Reports: Hx Depression Denies: Hx Bipolar Disorder, Hx Schizophrenia Infectious Medical History: Denies: Hx Hepatitis Past Surgical History: Reports: Hx Abdominal Surgery - Gastric bypass, Hx Cardiac Catheterization - stent X2, Hx Cholecystectomy, Hx Hysterectomy, Hx Orthopedic Surgery - carpal tunnel bilateral hands, spur on heel. Denies: Hx Mastectomy, Hx Open Heart Surgery, Hx Pacemaker - Immunizations Immunizations up to date: Yes Hx Diphtheria, Pertussis, Tetanus Vaccination: Yes Hx Pneumococcal Vaccination: 10/03/07 Review of Systems - Review of Systems Constitutional: No symptoms reported EENT: No symptoms reported Cardiovascular: No symptoms reported Respiratory: No symptoms reported Gastrointestinal: No symptoms reported Genitourinary: No symptoms reported Female Genitourinary: No symptoms reported Musculoskeletal: No symptoms reported Skin: No symptoms reported Hematologic/Lymphatic: No symptoms reported Neurological/Psychological: No symptoms reported Physical Exam - Vital signs Vitals: Temp Pulse Resp BP Pulse Ox 98.3 F 81 16 129/63 H 98 02/25/18 20:28 02/25/18 20:28 02/25/18 20:28 02/25/18 20:28 02/25/18 20:28 - General General appearance: Appears well In distress: None - HEENT Head: Normocephalic, Atraumatic Eyes: Normal Extraocular movements intact: Yes Eyelashes: Normal Pupils: PERRL Mucous membranes: Normal Pharynx: Normal Neck: Normal - Respiratory Respiratory status: No respiratory distress. No: Labored, Retractions, Tachypnea Chest status: Tender - Tender over the mid right lateral ribs mainly over the midaxillary line, no bruising, no swelling, no severe tenderness. Otherwise unremarkable chest wall - Cardiovascular Rhythm: Regular. No: Tachycardia Heart sounds: Normal auscultation, S1 appreciated, S2 appreciated - Abdominal Inspection: Normal Tenderness: Nontender. No: Tender, Guarding - Back Back: Normal, Nontender. No: Tender - Extremities General upper extremity: Other - Tenderness generally over the right shoulder and proximal humerus, full range of motion intact, normal strength, normal distal neurovascular exam General lower extremity: Tender - Very mild tenderness with gentle palpation of the proximal thigh and right hip, no bruising, normal ambulation, normal distal neurovascular exam. No: Edema - Neurological Neuro grossly intact: Yes Cognition: Normal Orientation: AAOx4 [place] Coma Scale Eye Opening: Spontaneous [place] Coma Scale Verbal: Oriented [place] Coma Scale Motor: Obeys Commands Ivis Coma Scale Total: 15 Speech: Normal Cranial nerves: Normal Cerebellar coordination: Normal Motor strength normal: LUE, RUE, LLE, RLE Additional motor exam normals: Equal engraver signature Sensory: Normal - Skin Skin Temperature: Warm Skin Moisture: Dry Skin Color: Normal Course - Re-evaluation Re-evalutation: Patient is sitting up, smiling, talkative, well-appearing. She has a lot of pain when moving her right arm, she complains of rib pain on the right side but she is breathing easily, her vital signs are unremarkable, she does not appear to be in any acute distress. There is no bruising over the abdomen, chest, back , shoulder even though patient is on Plavix. No signs of severe trauma. X- rays show severe degenerative changes at the right AC joint, patient states she was already aware of this, she was provided with a copy of this. Because of her fall and pain she was provided with a sling, she was provided with pain medicine because she only has 1 more day left before she follows up with her primary care for more medications but that is after the weekend. Shoulder examination showing questionable free air, however I went back in and evaluated the patient's arm again, she just got the tetanus shot into her arm in the location of this abnormality just prior to her going and getting the x- ray. No wounds, no erythema, no fever, no suggestion of infection and free air , no cyanosis of ear trauma. Hip x-ray unremarkable. Chest x-ray showing fracture of the rib on the right side of the fifth rib, read as subacute but patient has pain over this location. No pneumothorax, no bruising, no respiratory distress suggesting worse injury. Decision was made not to perform CAT scan. Patient provided with incentive spirometer, patient states she will follow-up within the next few days with her provider, discussed strict return precautions and she states that she will return if she develops any worsening symptoms at all. Sister at bedside states she lives with her and states agreement with plan. - Vital Signs Vital signs: Temp Pulse Resp BP Pulse Ox 98.2 F 64 16 112/58 L 100 02/25/18 22:26 02/25/18 22:26 02/25/18 22:26 02/25/18 22:26 02/25/18 22:26 Discharge - Discharge Clinical Impression: Right hip pain Fall Qualifiers: Encounter type: initial encounter Qualified Code(s): W19.XXXA - Unspecified fall, initial encounter Right rib fracture Qualifiers: Encounter type: initial encounter Rib fracture type: single rib Fracture type: closed Qualified Code(s): S22.31XA - Fracture of one rib, right side, initial encounter for closed fracture Shoulder pain, right Qualifiers: Chronicity: acute Qualified Code(s): M25.511 - Pain in right shoulder Condition: Stable Disposition: HOME, SELF-CARE Additional Instructions: Your x-ray does show a cracked rib, the fifth rib on the right side, you have been given incentive spirometry for this, use this multiple times a day to help prevent pneumonia. Continue your pain medication. For your shoulder I recommend ice, rest, you can wear the sling, take the shoulder out of the sling frequently and perform range of motion to avoid loss of shoulder function. Take the copy of your x-ray with you to orthopedics referral. Return to emergency department for any concerning symptoms including fever, difficulty breathing, vomiting, passing out, or any other concerning symptoms. Prescriptions: Oxycodone HCl/Acetaminophen [Percocet 10-325 Mg Tablet] 1 each PO Q6H PRN #20 tablet PRN Reason: Referrals: CHIP CARDOZA MD [ACTIVE STAFF] - Follow up in 1 week
--- NOTE | 2018-02-25 21:51 | RADIOLOGY REPORT (SQ) ---
EXAM DESCRIPTION: HUMERUS RIGHT COMPLETED DATE/TIME: 02/25/2018 9:28 pm REASON FOR STUDY: s/p fall COMPARISON: 09/08/2007 NUMBER OF VIEWS: Two views. TECHNIQUE: Two radiographic images were acquired of the right humerus to include elbow and shoulder in at least one projection. LIMITATIONS: None. FINDINGS: MINERALIZATION: Osteopenia BONES: No acute fracture or dislocation. No worrisome bone lesions. SOFT TISSUES: The subcutaneous curvilinear relative lucency in the region of the deltoid may represen t subcutaneous gas. OTHER: Severe degenerative changes are seen of the glenohumeral joint and acromioclavicular joint wit h superior subluxation of the humeral head suggesting complete rotator cuff tear. IMPRESSION: No evidence of acute osseous injury. Severe degenerative changes of the glenohumeral an d acromioclavicular joints. Probable complete rotator cuff tear. Nonspecific curvilinear lucency wi thin the soft tissues may represent subcutaneous gas. Recommend correlation with mechanism of injury . TECHNICAL DOCUMENTATION: JOB ID: [id number] [employer]- All Rights Reserved Reading location - IP/workstation name: [email or web address]
--- NOTE | 2018-02-25 21:54 | RADIOLOGY REPORT (SQ) ---
EXAM DESCRIPTION: HIP RIGHT AP/LATERAL COMPLETED DATE/TIME: 02/25/2018 9:28 pm REASON FOR STUDY: fall, pain COMPARISON: None. NUMBER OF VIEWS: Two views. TECHNIQUE: AP pelvis and additional frog-leg view of the right hip. LIMITATIONS: None. FINDINGS: MINERALIZATION: Normal. RIGHT HIP: No fracture or dislocation. No worrisome bone lesions. LEFT HIP: No fracture or dislocation. No worrisome bone lesions. PUBIS AND ISCHIUM: No fracture. PELVIS: No fracture. SACRUM: No fracture or dislocation. No worrisome bone lesions. LOWER LUMBAR SPINE: Degenerative changes are present. SOFT TISSUES: No findings. OTHER: No other significant finding. IMPRESSION: No evidence of acute osseous injury. TECHNICAL DOCUMENTATION: JOB ID: [id number] [employer]- All Rights Reserved Reading location - IP/workstation name: [email or web address]
--- NOTE | 2018-02-25 21:54 | RADIOLOGY REPORT (SQ) ---
EXAM DESCRIPTION: RIBS RIGHT W/PA CHEST COMPLETED DATE/TIME: 02/25/2018 9:28 pm REASON FOR STUDY: fall, pain COMPARISON: None. TECHNIQUE: Frontal view of the chest and additional views of the right ribs acquired. NUMBER OF VIEWS: Three view. LIMITATIONS: None. FINDINGS: FRONTAL CXR: No pneumothorax. No pleural effusion. No atelectasis or infiltrates. RIBS: A nondisplaced fracture is seen of the right 5th rib laterally notably, marginal resorption and bridging periosteal reaction are present, conferring a subacute appearance. OTHER: No other significant finding. IMPRESSION: Subacute nondisplaced fracture of the right 5th rib laterally. COMMENT: SITE OF TRAUMA/COMPLAINT MARKED/STAMP COMPLETED: Yes TECHNICAL DOCUMENTATION: JOB ID: [id number] [employer]- All Rights Reserved Reading location - IP/workstation name: [email or web address]
[2018-02-25 22:28] VITALS: BP 112/58
== END 2018-02-25 22:48 | disposition home or self-care (01) ==
LOC: ER 20:22
DX: S22.31XA Fracture of one rib, right side, initial encounter for closed fracture (principal); M25.511 Pain in right shoulder; M25.551 Pain in right hip; M79.601 Pain in right arm; W01.0XXA Fall on same level from slipping, tripping and stumbling without subsequent striking against object, initial encounter; Y92.008 Other place in unspecified non-institutional (private) residence as the place of occurrence of the external cause; I25.10 Atherosclerotic heart disease of native coronary artery without angina pectoris; I10 Essential (primary) hypertension; E11.9 Type 2 diabetes mellitus without complications; Z79.02 Long term (current) use of antithrombotics/antiplatelets; Z88.1 Allergy status to other antibiotic agents; Z88.5 Allergy status to narcotic agent; Z87.891 Personal history of nicotine dependence; Z98.84 Bariatric surgery status; Z95.1 Presence of aortocoronary bypass graft
CPT/HCPCS: 99283; 90471; 73502; 73060; 71101; 90715; A9270

== ENCOUNTER → 2018-03-02 | Outpatient (CLI) | payer MEDICARE, MEDICAID ==
[2018-03-02 13:34] LABS: ABSOLUTE BASOPHILS # (AUTO) 0.1 10^3/uL (0.0-0.2); ABSOLUTE EOSINOPHILS # (AUTO) 0.2 10^3/uL (0.0-0.6); ABSOLUTE LYMPHOCYTES (AUTO) 1.6 10^3/uL (0.5-4.7); ABSOLUTE MONOCYTES (AUTO) 0.6 10^3/uL (0.1-1.4); ABSOLUTE NEUT (AUTO) 4.3 10^3/uL (1.7-8.2); BASOPHILS % (AUTO) 1.2 % (0-2); EOSINOPHILS % (AUTO) 2.4 % (0-6); HEMATOCRIT 35.5 % (36.0-47.0); HEMOGLOBIN 11.9 g/dL (12.0-15.5); LYMPHOCYTES % (AUTO) 23.6 % (13-45); MEAN CORPUSCULAR HEMOGLOBIN 30.7 pg (27.0-33.4); MEAN CORPUSCULAR HGB CONC 33.4 g/dL (32.0-36.0); MEAN CORPUSCULAR VOLUME 92 fl (80-97); MONOCYTES % (AUTO) 8.3 % (3-13); PLATELET COUNT 297 10^3/uL (150-450); RED BLOOD COUNT 3.86 10^6/uL (3.72-5.28); RED CELL DISTRIBUTION WIDTH 15.3 % (11.5-14.0); SEGMENTED NEUTROPHILS % (AUTO) 64.5 % (42-78); TOTAL CELLS COUNTED % (AUTO) 100 %; WHITE BLOOD COUNT 6.6 10^3/uL (4.0-10.5)
[2018-03-02 14:01] LABS: ALANINE AMINOTRANSFERASE 22 U/L (9-52); ALBUMIN 3.7 g/dL (3.5-5.0); ALKALINE PHOSPHATASE 60 U/L (38-126); ANION GAP 10 (5-19); ASPARTATE AMINO TRANSFERASE 23 U/L (14-36); BILIRUBIN,DIRECT 0.4 mg/dL (0.0-0.4); BILIRUBIN,TOTAL 0.6 mg/dL (0.2-1.3); BLOOD UREA NITROGEN 36 mg/dL (7-20); C-REACTIVE PROTEIN 52.1 mg/L (<10.0); CALCIUM 9.6 mg/dL (8.4-10.2); CARBON DIOXIDE 29 mmol/L (22-30); CHLORIDE 106 mmol/L (98-107); GLUCOSE 107 mg/dL (75-110); POTASSIUM 5.5 mmol/L (3.6-5.0); SODIUM 145.1 mmol/L (137-145); TOTAL PROTEIN 7.1 g/dL (6.3-8.2)
[2018-03-02 14:12] LABS: ERYTHROCYTE SEDIMENTATION RATE 51 mm/hr (0-30)
== END ==
LOC: WC 12:38
PROVIDERS: ATTEND Nurse Practitioner
DX: L97.222 Non-pressure chronic ulcer of left calf with fat layer exposed (principal)
CPT/HCPCS: 36415; 80053; 85025; 85652; 86140

== ENCOUNTER → 2018-03-03 | Outpatient (CLI) | payer MEDICARE, MEDICAID ==
--- NOTE | 2018-03-03 15:27 | RADIOLOGY REPORT (SQ) ---
EXAM DESCRIPTION: RIBS LEFT W/PA CHEST COMPLETED DATE/TIME: 03/03/2018 3:07 pm REASON FOR STUDY: CHEST PAIN ON BREATHING R07.1 CHEST PAIN ON BREATHING COMPARISON: 03/05/2007 TECHNIQUE: Frontal view of the chest and additional views of the left ribs acquired. NUMBER OF VIEWS: Five views LIMITATIONS: None. FINDINGS: FRONTAL CXR: No pneumothorax. No pleural effusion. No atelectasis or infiltrates. RIBS: There is a fracture of the left 7th rib anteriorly. OTHER: No other significant finding. IMPRESSION: Left 7th rib fracture. No pneumothorax. COMMENT: SITE OF TRAUMA/COMPLAINT MARKED/STAMP COMPLETED: No TECHNICAL DOCUMENTATION: JOB ID: [id number] [employer]- All Rights Reserved Reading location - IP/workstation name: [email or web address]
== END ==
LOC: OD 14:38
PROVIDERS: ATTEND Internal Medicine
DX: S22.32XA Fracture of one rib, left side, initial encounter for closed fracture (principal); X58.XXXA Exposure to other specified factors, initial encounter; R07.1 Chest pain on breathing

== ENCOUNTER → 2018-03-07 | Outpatient (CLI) | payer MEDICARE, MEDICAID ==
--- NOTE | 2018-03-07 19:48 | XCELERA REPORT ---
[address] [address] Lower Extremity Arterial Evaluation Name: FATOUMATA KRUEGER Age: 68 yrs Gender: Female : 1950 Patient Status: Outpatient Patient Location: Study Date: 03/07/2018 01:24 PM Procedure: A color flow and duplex scan of the lower extremity arteries was performed bilaterally with velocity and waveform anaylsis. Reason For Study: ULCER Ordering Physician: SON CH Performed By: Peter Jones Measurements and Calculations Right Left PLANISHER PSV 119.4 131.3 cm/sec Prox PFA PSV 91.3 66.4 cm/sec Prox SFA PSV 110.0 97.0 cm/sec Mid SFA PSV -92.6 -97.0 cm/sec Dist SFA PSV -82.1 -92.1 cm/sec Prox Pop A PSV 59.4 66.4 cm/sec Dist HONEY PSV 56.3 44.6 cm/sec Dist MOLTEN IRON POURER PSV 86.0 69.1 cm/sec Jose Pedis PSV -112.4 79.9 cm/sec Right Side Arterial Evaluation Normal velocity and triphasic waveforms noted from the Common Femoral artery to the infrageniculate vessels. 0 % stenosis . Ankle Brachial index was declined. Left Side Arterial Evaluation Normal velocity and triphasic waveforms noted from the Common Femoral artery to the infrageniculate vessels. 0 % stenosis . Ankle Brachial index was declined. Interpretation Summary No hemodynamically significant lesions in the bilateral lower extremities, on duplex imaging, at rest. : SON CH > Zia Jeter
--- NOTE | 2018-03-07 19:52 | XCELERA REPORT ---
[address] [address] Lower Extremity Venous Evaluation Name: FATOUMATA KRUEGER Age: 68 yrs Gender: Female : 1950 Patient Status: Outpatient Patient Location: Study Date: 03/07/2018 01:52 PM Procedure: A bilateral duplex scan of the lower extremity veins was performed. The evaluation included responses to compression and other maneuvers with patient in the supine and standing positions to assess venous insufficiency. Reason For Study: ULCER Ordering Physician: SON CH Performed By: Peter Jones Right Sided Venous Evaluation Deep venous system evaluatiion shows patent veins with no obstruction or significant reflux identified. Sapheno Femoral junction: no reflux. Femoral vein reflux: no reflux. Greater Saphenous vein, Proximal thigh: reflux: no reflux. Greater Saphenous vein, Distal thigh: reflux: no reflux. Greater Saphenous vein, Proximal below knee: reflux: no reflux. No significant Perforators identified. Left Sided Venous Evaluation Deep venous system evaluatiion shows patent veins with no obstruction or significant reflux identified. Sapheno Femoral junction: no reflux. Femoral vein reflux: no reflux. Greater Saphenous vein, Proximal thigh: reflux: no reflux. Greater Saphenous vein, Distal thigh: reflux: no reflux. Greater Saphenous vein, Proximal below knee: reflux: no reflux. No significant Perforators identified. Interpretation Summary No duplex evidence of DVT or obstruction in the bilateral lower extremities. No significant deep or superficial reflux found. : SON CH > Zia Jeter
== END ==
LOC: SP 12:38
PROVIDERS: ATTEND Nurse Practitioner
DX: L97.222 Non-pressure chronic ulcer of left calf with fat layer exposed (principal)
CPT/HCPCS: 93925; 93970

== ENCOUNTER 2018-03-16 10:14 | Day surgery (SDC) | payer MEDICARE, MEDICAID ==
[~2018-03-16 10:14] MED LIST changes: -CHONDR SU A NA/HYALUR INTRAOC KIT (SURGICARE) ONE; -EPINEPHRINE INJ/PF 1 MG/1 ML AMPULE ONE; +KETOROLAC TROMETHAMINE 0.45% 4 DROP/0.4 ML DROPERETTE OD PRN; -KETOROLAC TROMETHAMINE 0.45% 4 DROP/0.4 ML DROPERETTE OS PRN; -LIDOCAINE 1% INJ-PF (10 MG/ML) 30 ML SDV ONE
[2018-03-16] MEDS ORDERED: LIDOCAINE 1% INJ-PF (10 MG/ML) 30 ML SDV ONE (10:33)
[2018-03-16] MEDS: BESIFLOXACIN HCL 0.6% OPH SUSP 5 ML BOTTLE OD PRN ×5 (10:58→11:40)
[2018-03-16] MEDS: CYCLOPENTOLATE 0.2%/PHENYLEPHRINE 1% OPH SOLN 2 ML OD PRN ×4 (10:58→11:18)
[2018-03-16] MEDS: TROPICAMIDE 1% OPH SOLN 3 ML OD PRN ×4 (10:58→11:18)
[2018-03-16] MEDS: TETRACAINE HCL 0.5% OPH SOLN 2 ML OD PRN ×5 (10:59→11:41)
[2018-03-16] MEDS ORDERED: MIDAZOLAM 2 MG/2 ML INJ ONE (11:17)
[2018-03-16] MEDS ORDERED: FENTANYL CITRATE INJ/PF 100 MCG/2 ML AMPUL ONE (11:18)
[2018-03-16] MEDS: CHONDR SU A NA/HYALUR INTRAOC KIT (SURGICARE) ONE ×2 (11:29)
[2018-03-16] MEDS: EPINEPHRINE INJ/PF 1 MG/1 ML AMPULE ONE ×2 (11:29)
[2018-03-16] MEDS: LIDOCAINE 1%/PHENYLEPHRINE 1.5% 1 ML VIAL ONE ×2 (11:29)
--- NOTE | 2018-03-16 22:00 | [facility] OPERATIVE REPORT E ---
[facility] Operative Report NAME: FATOUMATA KRUEGER AGE: 68Y DATE OF SURGERY: 03/16/2018 ROOM: PREOPERATIVE DIAGNOSES: 1. CATARACT RIGHT EYE. 2. PUPIL MIOSIS, RIGHT EYE. POSTOPERATIVE DIAGNOSES: 1. CATARACT RIGHT EYE. 2. PUPIL MIOSIS, RIGHT EYE. OPERATION: Complex cataract extraction with the use of a Malyugin ring due to a very miotic pupil. SURGEON: RITO SOLOMON M.D. ANESTHESIA: TOPICAL. PROCEDURE: After obtaining appropriate consent, the patient right eye was prepped and draped in sterile fashion as well as the surgeon in a sterile manner, and the cataract surgery was started. First, the paracentesis blade was used to make a small side-port incision. Viscoelastic was used to inflate the anterior chamber. Next a 2.4 mm incision was made using a 2.4 mm keratome. At this point, the pupil was less than 4.5 mm and was very miotic. In order to complete the capsulorhexis, a Malyugin ring was inserted and found to be in excellent position to help stabilize the pupil. Following this, a continuous capsulorhexis was made using a cystitome and Utrata forceps. Following this, hydrodissection was carried out to make the lens fully loose and mobile, and it was rotated 90 degrees. Following this, a divide and conquer technique was used to phacoemulsify the lens with a CDE of approximately 5.25. The remaining cortex was removed with irrigation/aspiration. Provisc was instilled into the capsular bag to inflate the bag. A SN60WF lens of 23.5 diopters was placed. The remaining viscoelastic material was removed with irrigation/aspiration. After this the Malyugin ring was removed. Following this, the incision was found to be watertight. Besivance was instilled into the eye and a protective shield was placed over the eye. The patient returned to the postoperative recovery in stable condition. This was a complex case due to the fact that the Malyugin ring was used due to poor pupillary dilation of less than or equal to 4 mm. Prior to making the capsulorhexis a Malyugin was inserted, this is due to a pupil of 3.0 mm for a very miotic, this was removed at the end of the case. DICTATING PHYSICIAN: RITO SOLOMON M.D. [id number] PHY#: [id number] ID: [id number] JOB#: [id number] ACCT: [id number] cc:RITO SOLOMON M.D. >
--- NOTE | 2018-03-16 22:05 | [facility] DISCHARGE SUMMARY E ---
[facility] Discharge Summary NAME: FATOUMATA KRUEGER AGE: 68Y ADMITTED: 03/16/2018 DISCHARGED: 03/16/2018 HOSPITAL COURSE: This is a 68-year-old female who underwent complex cataract extraction of the right eye with use of a Malyugin ring. DIAGNOSES: 1. CATARACT, RIGHT EYE. 2. PUPIL MIOSIS OF 3 MM. The patient underwent surgery because she was having trouble reading words on the TV and small print like medicine problems. DISCHARGE INSTRUCTIONS: She should be on a regular diet. No bending at her waist, no heavy lifting. She should use her Besivance, Ilevro, and Durezol at 3 p.m. and 8 p.m. and sleep with a rigid shield. I will see her for her 1 day postoperative tomorrow. DICTATING PHYSICIAN: RITO SOLOMON M.D. [id number] PHY#: [id number] ID: [id number] JOB#: [id number] ACCT: [id number] cc:RITO SOLOMON M.D. >
== END 2018-03-16 12:21 | disposition home or self-care (01) ==
LOC: SC 10:14
PROVIDERS: ATTEND Internal Medicine
DX: H25.11 Age-related nuclear cataract, right eye (principal); H57.03 Miosis; Z96.1 Presence of intraocular lens; H40.89 Other specified glaucoma; I10 Essential (primary) hypertension; I49.9 Cardiac arrhythmia, unspecified; E66.9 Obesity, unspecified; Z86.73 Personal history of transient ischemic attack (TIA), and cerebral infarction without residual deficits; Z79.02 Long term (current) use of antithrombotics/antiplatelets; Z88.5 Allergy status to narcotic agent; Z68.38 Body mass index [BMI] 38.0-38.9, adult
CPT/HCPCS: 66982; V2632; J2250; J3490; A9270; J0171; J3010; J2370; 142

== ENCOUNTER → 2018-05-02 | Outpatient (CLI) | payer MEDICARE, MEDICAID ==
--- NOTE | 2018-05-02 18:30 | RADIOLOGY REPORT (SQ) ---
EXAM DESCRIPTION: PARANASAL SINUSES COMPLETED DATE/TIME: 05/02/2018 4:10 pm REASON FOR STUDY: COUGH; PAIN IN LEFT KNEE COMPARISON: 03/29/2013 NUMBER OF VIEWS: Three views TECHNIQUE: Images of the paranasal sinuses acquired. LIMITATIONS: None. FINDINGS: ORBITS: No fracture. No foreign body. SINUSES: There is opacification in the left maxillary sinus. FACIAL BONES: No fracture. OTHER: No other significant finding. IMPRESSION: Left maxillary sinus disease. TECHNICAL DOCUMENTATION: JOB ID: [id number] [employer]- All Rights Reserved Reading location - IP/workstation name: [email or web address]
--- NOTE | 2018-05-02 18:31 | RADIOLOGY REPORT (SQ) ---
EXAM DESCRIPTION: KNEE LEFT 2 VIEWS COMPLETED DATE/TIME: 05/02/2018 4:10 pm REASON FOR STUDY: COUGH; PAIN IN LEFT KNEE COMPARISON: 01/07/2018 NUMBER OF VIEWS: Two views. TECHNIQUE: AP and lateral radiographic images acquired of the left knee. LIMITATIONS: None. FINDINGS: MINERALIZATION: Normal. BONES: No acute fracture or dislocation. No worrisome bone lesions. JOINT: There is mild narrowing of the lateral joint compartment with small marginal osteophytes. The re is significant patellofemoral narrowing with posterior patellar and trochlear osteophytes. There is a minimal joint effusion. SOFT TISSUES: No soft tissue swelling. No radio-opaque foreign body. OTHER: No other significant finding. 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 TECHNICAL DOCUMENTATION: JOB ID: [id number] [employer]- All Rights Reserved Reading location - IP/workstation name: [email or web address]
--- NOTE | 2018-05-02 18:33 | RADIOLOGY REPORT (SQ) ---
EXAM DESCRIPTION: CHEST PA/LATERAL COMPLETED DATE/TIME: 05/02/2018 4:10 pm REASON FOR STUDY: COUGH; PAIN IN LEFT KNEE COMPARISON: 01/07/2018 EXAM PARAMETERS: NUMBER OF VIEWS: two views TECHNIQUE: Digital Frontal and Lateral radiographic views of the chest acquired. RADIATION DOSE: NA LIMITATIONS: none FINDINGS: LUNGS AND PLEURA: No opacities, masses or pneumothorax. No pleural effusion. MEDIASTINUM AND HILAR STRUCTURES: No masses or contour abnormalities. HEART AND VASCULAR STRUCTURES: Heart normal size. No evidence for failure. BONES: No acute findings. HARDWARE: None in the chest. OTHER: No other significant finding. IMPRESSION: NO SIGNIFICANT RADIOGRAPHIC FINDING IN THE CHEST. TECHNICAL DOCUMENTATION: JOB ID: [id number] [employer]- All Rights Reserved Reading location - IP/workstation name: [email or web address]
== END ==
LOC: OD 15:43
PROVIDERS: ATTEND Internal Medicine
DX: M17.12 Unilateral primary osteoarthritis, left knee (principal); M25.562 Pain in left knee; R05 Cough; J32.0 Chronic maxillary sinusitis
CPT/HCPCS: 70220; 71046

== ENCOUNTER 2018-05-06 16:10 | Emergency (ER) | payer MEDICARE, MEDICAID ==
--- NOTE | 2018-05-06 17:11 | ER Document Report ---
ED Fall - General Chief Complaint: Fall Injury Stated Complaint: FALL/ARM AND RIB PAIN Time Seen by Provider: 05/06/18 17:04 Notes: 68-year-old female on Plavix fell while at a [employer]ish meeting. Has pain in her right proximal humerus area and right chest. Did also have some pain in the right knee but this has since resolved. Was able to ambulate and drive herself here. Denies any loss of consciousness. Denies any syncope. States that she slipped on a rug and fell down and landed hard on her right arm and right side of the chest and right knee. Denies any shortness of breath or chest pain at this time other than pain in the right side of the chest where her ribs are. TRAVEL OUTSIDE OF THE [place] IN LAST 30 DAYS: No - HPI Occurred: Just prior to arrival Context: Tripped Associated symptoms: None Location of injury/pain: Other - Right arm, right knee, right chest - Related data Allergies/Adverse Reactions: erythromycin base [Erythromycin Base] Allergy (Severe, Verified 05/06/18 16:11) stops breathing meperidine HCl [From Demerol] Allergy (Severe, Verified 05/06/18 16:11) VOMITING morphine Allergy (Intermediate, Verified 05/06/18 16:11) LOSS OF BALANCE, LOOPY Past Medical History - General Information source: Patient - Social History Smoking Status: Never Smoker Cigarette use (# per day): No Frequency of alcohol use: None Drug Abuse: None Lives with: Family Family History: Reviewed & Not Pertinent Patient has suicidal ideation: No Patient has homicidal ideation: No - Past Medical History Cardiac Medical History: Reports: Hx Coronary Artery Disease, Hx Hypercholesterolemia, Hx Hypertension Denies: Hx Congestive Heart Failure, Hx Heart Attack Pulmonary Medical History: Reports: Hx Bronchitis, Hx Pneumonia Denies: Hx Asthma, Hx COPD, Hx Tuberculosis Neurological Medical History: Denies: Hx Cerebrovascular Accident, Hx Seizures Endocrine Medical History: Reports: Hx Diabetes Mellitus Type 2 - Diet controlled Renal/ Medical History: Reports: Hx Kidney Stones. Denies: Hx End Stage Renal Disease, Hx Peritoneal Dialysis GI Medical History: Reports: Hx Gastroesophageal Reflux Disease, Hx Ulcer - HX OF. Denies: Hx Cirrhosis, Hx Hepatitis, Hx Hiatal Hernia Musculoskeletal Medical History: Reports Hx Arthritis, Denies Hx Multiple Sclerosis Psychiatric Medical History: Reports: Hx Depression Denies: Hx Bipolar Disorder, Hx Schizophrenia Infectious Medical History: Denies: Hx Hepatitis Past Surgical History: Reports: Hx Abdominal Surgery - Gastric bypass, Hx Cardiac Catheterization - stent X2, Hx Cholecystectomy, Hx Hysterectomy, Hx Orthopedic Surgery - carpal tunnel bilateral hands, spur on heel. Denies: Hx Mastectomy, Hx Open Heart Surgery, Hx Pacemaker - Immunizations Immunizations up to date: Yes Hx Diphtheria, Pertussis, Tetanus Vaccination: Yes Hx Pneumococcal Vaccination: 10/03/07 Review of Systems - Review of Systems Constitutional: denies: Diaphoresis, Fever, Weakness EENT: denies: Eye pain, Blurred vision, Double vision, Difficulty swallowing, Throat swelling Cardiovascular: Chest pain. denies: Palpitations, Heart racing, Orthopnea, Syncope, Dizziness, Lightheaded Respiratory: denies: Cough, Hurts to breathe, Short of breath, Wheezing Gastrointestinal: denies: Abdominal pain, Diarrhea, Nausea, Vomiting Musculoskeletal: See HPI, Other - Right arm pain, right sided chest pain, right knee pain Skin: denies: Dryness, Lesions, Lumps, Rash Neurological/Psychological: denies: Confusion, Weakness, Numbness Physical Exam - Vital signs Vitals: Temp Pulse Resp BP Pulse Ox 98.1 F 80 20 112/61 95 05/06/18 16:14 05/06/18 16:14 05/06/18 16:14 05/06/18 16:14 05/06/18 16:14 Interpretation: Normal - General General appearance: Appears well, Alert - HEENT Head: Normocephalic, Atraumatic Eyes: Normal Pupils: PERRL - Respiratory Respiratory status: No respiratory distress Chest status: Nontender Breath sounds: Normal Chest palpation: Normal - Cardiovascular Rhythm: Regular Heart sounds: Normal auscultation Murmur: No Notes: Tenderness to palpation the right chest wall laterally - Abdominal Inspection: Normal Distension: No distension Bowel sounds: Normal Tenderness: Nontender Organomegaly: No organomegaly - Back Back: Normal, Nontender - Extremities General upper extremity: Normal inspection, Tender - Tender to palpation of the proximal humerus area. Pain with range of motion., Normal color, Normal temperature General lower extremity: Normal inspection, Nontender, Normal color, Normal ROM , Normal temperature, Normal weight bearing, Other - There is a small bruise noted on the right patella but full range of motion. Able to stand and walk more than 4 steps without a limp or significant pain.. No: Wong's sign - Neurological Neuro grossly intact: Yes Cognition: Normal Orientation: AAOx4 Ivis Coma Scale Eye Opening: Spontaneous [place] Coma Scale Verbal: Oriented [place] Coma Scale Motor: Obeys Commands [place] Coma Scale Total: 15 Speech: Normal Motor strength normal: LUE, RUE, LLE, RLE Sensory: Normal - Skin Skin Temperature: Warm Skin Moisture: Dry Skin Color: Normal Course - Re-evaluation Re-evalutation: 05/06/18 17:16 At this time we will x-ray the arm and chest and reassess. 05/06/18 17:46 Humerus X-Ray 05/06/18 17:10 IMPRESSION: No acute fracture. Chronic right shoulder rotator cuff disease and osteoarthritis Ribs w/Chest X-Ray 05/06/18 17:10 IMPRESSION: No acute displaced rib fractures no acute infiltrates. No pneumothorax. No evidence of fracture or dislocation. Patient feels good enough at this time. Will DC. - Vital Signs Vital signs: Temp Pulse Resp BP Pulse Ox 98.1 F 80 20 112/61 95 05/06/18 16:14 05/06/18 16:14 05/06/18 16:14 05/06/18 16:14 05/06/18 16:14 Discharge - Discharge Clinical Impression: Contusion of right arm Qualifiers: Encounter type: initial encounter Qualified Code(s): S40.021A - Contusion of right upper arm, initial encounter Chest wall contusion Qualifiers: Encounter type: initial encounter Laterality: right Qualified Code(s): S20.211A - Contusion of right front wall of thorax, initial encounter Condition: Good Disposition: HOME, SELF-CARE Instructions: Rib Contusion ([facility]), Arm Pain, Nonspecific ([facility]) Additional Instructions: Follow-up with your regular doctor. If symptoms persist return for repeat evaluation. Referrals: EARNEST COLLAZO MD [Primary Care Provider] - Follow up as needed
--- NOTE | 2018-05-06 17:42 | RADIOLOGY REPORT (SQ) ---
EXAM DESCRIPTION: HUMERUS RIGHT COMPLETED DATE/TIME: 05/06/2018 5:33 pm REASON FOR STUDY: fall, pain no open wound COMPARISON: None. NUMBER OF VIEWS: Two views. TECHNIQUE: Two radiographic images were acquired of the right humerus to include elbow and shoulder in at least one projection. LIMITATIONS: None. FINDINGS: MINERALIZATION: Osteoporotic BONES: No acute fracture or dislocation. No worrisome bone lesions. SOFT TISSUES: No obvious swelling or foreign body. OTHER: There is advanced arthritis at the right shoulder joint with the right humeral head abutting t he undersurface of the acromion likely from a chronic full-thickness rotator cuff tear IMPRESSION: No acute fracture. Chronic right shoulder rotator cuff disease and osteoarthritis TECHNICAL DOCUMENTATION: JOB ID: [id number] [employer]- All Rights Reserved Reading location - IP/workstation name: [email or web address]
--- NOTE | 2018-05-06 17:45 | RADIOLOGY REPORT (SQ) ---
EXAM DESCRIPTION: RIBS RIGHT W/PA CHEST COMPLETED DATE/TIME: 05/06/2018 5:33 pm REASON FOR STUDY: fall, pain injury pain COMPARISON: Two-view chest 05/02/2018 PA chest and left rib detail 03/03/2018 TECHNIQUE: Frontal view of the chest and additional views of the right ribs acquired. NUMBER OF VIEWS: PA chest Right rib detail four views LIMITATIONS: None. FINDINGS: FRONTAL CXR: No acute infiltrates. No pleural effusion. No pneumothorax. Cardiac silhou ette size, moncho unremarkable. RIBS: No acute displaced rib fractures. There are old healed right anterior 4th through 7th rib frac tures. OTHER: Advanced right shoulder osteoarthritis IMPRESSION: No acute displaced rib fractures no acute infiltrates. No pneumothorax. COMMENT: SITE OF TRAUMA/COMPLAINT MARKED/STAMP COMPLETED: Yes TECHNICAL DOCUMENTATION: JOB ID: [id number] [employer]- All Rights Reserved Reading location - IP/workstation name: [email or web address]
[2018-05-06] MEDS ORDERED: ACETAMINOPHEN 325 MG TABLET PO ONE (17:47)
[2018-05-06 18:03] VITALS: BP 101/51
== END 2018-05-06 18:06 | disposition home or self-care (01) ==
LOC: ER 16:10
DX: S40.021A Contusion of right upper arm, initial encounter (principal); S20.211A Contusion of right front wall of thorax, initial encounter; S80.01XA Contusion of right knee, initial encounter; R07.81 Pleurodynia; W01.0XXA Fall on same level from slipping, tripping and stumbling without subsequent striking against object, initial encounter; Y92.22 Religious institution as the place of occurrence of the external cause; M19.011 Primary osteoarthritis, right shoulder; M25.561 Pain in right knee; E11.9 Type 2 diabetes mellitus without complications; I25.10 Atherosclerotic heart disease of native coronary artery without angina pectoris; I10 Essential (primary) hypertension; Z88.5 Allergy status to narcotic agent; Z88.1 Allergy status to other antibiotic agents; Z98.84 Bariatric surgery status
CPT/HCPCS: 99283